=== PATIENT | female | born 1955 | race Caucasian/White ===

== ENCOUNTER → 2019-07-26 14:54 | Outpatient (BNVA) | payer MEDICAID, SELFPAY | PROVIDERS: Family Provider Family Medicine; PCP Family Medicine; Visit Provider Internal Medicine | DX: M06.9 Rheumatoid arthritis, unspecified (principal); Z79.899 Other long term (current) drug therapy | CPT/HCPCS: 99202; 99203 ==

== ENCOUNTER → 2019-12-27 13:40 | Outpatient (BNVA) | payer BC, MEDICAID, SELFPAY | PROVIDERS: Family Provider Family Medicine; PCP Family Medicine; Visit Provider Internal Medicine | DX: M06.9 Rheumatoid arthritis, unspecified (principal); Z11.1 Encounter for screening for respiratory tuberculosis; Z11.59 Encounter for screening for other viral diseases; D86.9 Sarcoidosis, unspecified; M32.9 Systemic lupus erythematosus, unspecified; Z79.899 Other long term (current) drug therapy | CPT/HCPCS: 36415; 80053; 85025; 86480; 86704; 86803; 87340; 99214 ==

== ENCOUNTER 2020-01-17 14:35 | Outpatient (CLI) | payer MEDICARE, MEDICAID, BC, SELFPAY ==
[2020-01-17 14:45] VITALS: BP 143/80; PULSE 79; RESP 16; TEMP 36.6; O2SAT 94
[2020-01-17] MEDS: diphenhydrAMINE 25 mg Capsule PO (15:00)
[2020-01-17] MEDS: acetaminophen 500 mg Tablet PO (15:00)
[2020-01-17 15:26] VITALS: BMI 19.7
--- NOTE | 2020-01-17 15:34 | PC.NURSE ---
1500 Education given regarding Actemra. Initial infusion today.
[2020-01-17 17:04] VITALS: BP 147/74; PULSE 76; RESP 16; O2SAT 96
== END 2020-01-17 14:36 | disposition home or self-care (01) ==
LOC: RHEOACUTE 14:35
PROVIDERS: Family Provider Family Medicine; PCP Family Medicine; Visit Provider Internal Medicine
DX: M06.09 Rheumatoid arthritis without rheumatoid factor, multiple sites (principal)
CPT/HCPCS: 96365; 96366; J2930; J3262

== ENCOUNTER 2020-02-15 14:37 | Outpatient (CLI) | payer MEDICARE, BC, MEDICAID, SELFPAY ==
[2020-02-15 14:45] VITALS: BP 141/81; PULSE 88; RESP 16; TEMP 36.6; O2SAT 94
[2020-02-15] MEDS: acetaminophen 500 mg Tablet PO (15:05)
[2020-02-15] MEDS: diphenhydrAMINE 25 mg Capsule PO (15:08)
[2020-02-15 16:19] VITALS: BMI 19.5
[2020-02-15 16:43] VITALS: BP 134/80; PULSE 79; RESP 16; O2SAT 93
== END 2020-02-15 14:38 | disposition home or self-care (01) ==
LOC: RHEOACUTE 14:38
PROVIDERS: Family Provider Family Medicine; PCP Family Medicine; Visit Provider Internal Medicine
DX: M06.09 Rheumatoid arthritis without rheumatoid factor, multiple sites (principal)
CPT/HCPCS: 96365; 96375; J2930; J3262

== ENCOUNTER 2020-03-20 13:43 | Outpatient (CLI) | payer MEDICARE, MEDICAID, SELFPAY ==
[2020-03-20 15:17] VITALS: BP 124/75; PULSE 75; RESP 16; TEMP 36.8; O2SAT 97
[2020-03-20] MEDS: diphenhydrAMINE 25 mg Capsule PO (15:23)
[2020-03-20] MEDS: acetaminophen 325 mg Tablet 650 MG PO (15:23)
[2020-03-20 15:30] VITALS: BP 125/76; PULSE 75; RESP 16; TEMP 36.6; O2SAT 94
[2020-03-20 16:14] LABS: Basophils # 0.1 10^3/uL (0.0-0.1); Basophils % 0.9 %; Eosinophils # 0.6 10^3/uL (0.0-0.8); Hemoglobin 10.9 g/dL (11.5-15.3); Lymphocytes # 2.4 10^3/uL (0.8-4.8); Lymphocytes % 23.7 %; Mean Corpuscular Hemoglobin 30.3 pg (28.0-34.0); Mean Corpuscular Volume 91.7 fL (81-99); Mean Platelet Volume 10.4 fL (7.4-10.4); Monocytes # 0.9 10^3/uL (0.2-0.9); Monocytes % 9.2 %; Neutrophils # 5.98 10^3/uL (1.8-7.7); Neutrophils % 59.9 %; Nucleated Red Blood Cells % 0 %; Platelet Count 473 10^3/cmm (130-400); Red Cell Distribution Width 13.5 % (12.1-15.1)
[2020-03-20 16:29] LABS: Alanine Aminotransferase 16 U/L (0-33); Albumin Level 3.7 g/dL (3.5-5.2); Alkaline Phosphatase 88 IU/L (35-105); Aspartate Amino Transferase 16 U/L (0-32); Blood Urea Nitrogen 14 mg/dL (8-23); C Reactive Protein 2.8 mg/L (0.0-4.9); Calcium 7.5 mg/dL (8.5-10.5); Carbon Dioxide 28 mmol/L (22-29); Chloride 102 mmol/L (98-107); Globulin 2.5 g/dL (1.3-4.6); Glomerular Filtration Rate 100.3 mL/min (90-130); Glucose 83 mg/dL (65-115); Osmolality Calculated 290 mOsm/kg (285-295); Sodium 140 mmol/L (136-145); Total Bilirubin 0.2 mg/dL (0.15-1.2); Total Protein 6.2 g/dL (6.6-8.7)
[2020-03-20 17:00] LABS: Erythrocyte Sedimentation Rate 18 mm/hr (0-15)
--- NOTE | 2020-04-10 08:40 | PC.NURSE ---
Due to an administrative issue we are doing a late entry for clarity of the medical record. The infusion case was routine and the approximate stop time was 1630 based upon the start time of 1530.
== END 2020-03-20 13:44 | disposition home or self-care (01) ==
LOC: RHEOACUTE 13:53 → ONCMED 13:57
PROVIDERS: PCP Family Medicine; Visit Provider Internal Medicine
DX: Z51.12 Encounter for antineoplastic immunotherapy (principal); M06.09 Rheumatoid arthritis without rheumatoid factor, multiple sites; M50.30 Other cervical disc degeneration, unspecified cervical region; Z79.899 Other long term (current) drug therapy
CPT/HCPCS: 80053; 85025; 85651; 86140; 96365; 96375; 99213; J2930; J3262

== ENCOUNTER 2020-04-17 14:38 | Outpatient (CLI) | payer MEDICARE, MEDICAID, SELFPAY ==
[2020-04-17 15:10] VITALS: BP 118/73; PULSE 79; RESP 16; TEMP 36.2; O2SAT 94
[2020-04-17] MEDS: acetaminophen 500 mg Tablet PO (15:15)
[2020-04-17] MEDS: diphenhydrAMINE 25 mg Capsule PO (15:15)
[2020-04-17 16:26] VITALS: BP 149/77; PULSE 149; RESP 79; TEMP 37.1; O2SAT 96
== END 2020-04-17 14:39 | disposition home or self-care (01) ==
PROVIDERS: PCP Family Medicine; Visit Provider Internal Medicine
DX: M06.9 Rheumatoid arthritis, unspecified (principal)
CPT/HCPCS: 96365; 96375; J2930; J3262

== ENCOUNTER 2020-05-15 14:40 | Outpatient (CLI) | payer MEDICARE, MEDICAID, SELFPAY ==
[2020-05-15 15:30] VITALS: BP 135/83; PULSE 81; RESP 16; TEMP 37.4; O2SAT 98
[2020-05-15] MEDS: sodium chloride 0.9% 250 ML IV (15:30)
[2020-05-15] MEDS: acetaminophen 500 mg Tablet PO (15:34)
[2020-05-15] MEDS: diphenhydrAMINE 25 mg Capsule PO (15:36)
[2020-05-15 16:36] VITALS: BP 150/88; PULSE 74; RESP 16; TEMP 37.4; O2SAT 99
== END 2020-05-15 14:41 | disposition home or self-care (01) ==
PROVIDERS: PCP Family Medicine; Visit Provider Internal Medicine
DX: M06.9 Rheumatoid arthritis, unspecified (principal)
CPT/HCPCS: 96365; 96375; J2930; J3262; J7050

== ENCOUNTER 2020-06-18 11:14 | Outpatient (CLI) | payer MEDICARE, MEDICAID, SELFPAY ==
[2020-06-18 14:20] VITALS: BP 143/81; PULSE 84; RESP 16; TEMP 36.9; O2SAT 100
[2020-06-18] MEDS: acetaminophen 500 mg Tablet PO (15:01)
[2020-06-18] MEDS: sodium chloride 0.9% 250 ML 75 ML IV (15:01)
[2020-06-18] MEDS: diphenhydrAMINE 25 mg Capsule PO (15:01)
[2020-06-18 15:41] LABS: Basophils # 0.1 10^3/uL (0.0-0.1); Basophils % 0.9 %; Eosinophils # 0.6 10^3/uL (0.0-0.8); Eosinophils % 4.7 %; Hematocrit 38.2 % (37.0-47.0); Hemoglobin 12.8 g/dL (11.5-15.3); Lymphocytes # 2.5 10^3/uL (0.8-4.8); Lymphocytes % 20.2 %; Mean Corpuscular HGB Conc 33.5 g/dL (30.0-36.0); Mean Corpuscular Hemoglobin 30.7 pg (28.0-34.0); Mean Corpuscular Volume 91.6 fL (81-99); Mean Platelet Volume 10.4 fL (7.4-10.4); Monocytes % 7.7 %; Neutrophils % 66.2 %; Nucleated Red Blood Cells % 0 %; Platelet Count 582 10^3/cmm (130-400); Red Blood Count 4.17 10^6/uL (4.1-5.3); Red Cell Distribution Width 12.4 % (12.1-15.1); White Blood Count 12.6 10^3/uL (4.0-10.0)
[2020-06-18 15:56] LABS: Alanine Aminotransferase 16 U/L (0-33); Alkaline Phosphatase 93 IU/L (35-105); Anion Gap 14.7 (5-19); Aspartate Amino Transferase 18 U/L (0-32); Blood Urea Nitrogen 18 mg/dL (8-23); C Reactive Protein 4.1 mg/L (0.0-4.9); Calcium 8.6 mg/dL (8.5-10.5); Carbon Dioxide 27 mmol/L (22-29); Chloride 99 mmol/L (98-107); Globulin 2.8 g/dL (1.3-4.6); Glomerular Filtration Rate 100.3 mL/min (90-130); Glucose 89 mg/dL (65-115); Osmolality Calculated 285 mOsm/kg (285-295); Potassium 3.7 mmol/L (3.5-5.1); Sodium 137 mmol/L (136-145); Total Bilirubin 0.2 mg/dL (0.15-1.2); Total Protein 6.8 g/dL (6.6-8.7)
[2020-06-18 16:16] VITALS: BP 138/84; PULSE 82; RESP 16; TEMP 36.8; O2SAT 99
[2020-06-19 14:23] LABS: Cyclic Citrullinated Peptide >250 UNITS
== END 2020-06-18 11:15 | disposition home or self-care (01) ==
PROVIDERS: PCP Registered Nurse; Visit Provider Internal Medicine
DX: M06.9 Rheumatoid arthritis, unspecified (principal)
CPT/HCPCS: 80053; 85025; 86140; 96365; 96375; J2930; J3262; J7050

== ENCOUNTER → 2020-06-27 13:20 | Outpatient (BNVA) | payer MEDICARE, MEDICAID, SELFPAY | PROVIDERS: PCP Family Medicine; Visit Provider Internal Medicine | DX: M06.09 Rheumatoid arthritis without rheumatoid factor, multiple sites (principal); Z79.899 Other long term (current) drug therapy | CPT/HCPCS: 99213; 99214 ==

== ENCOUNTER 2020-07-18 13:42 | Outpatient (CLI) | payer MEDICARE, MEDICAID, SELFPAY ==
[2020-07-18 14:26] VITALS: BP 151/82; PULSE 73; RESP 16; TEMP 37.2; O2SAT 99
[2020-07-18] MEDS: acetaminophen 500 mg Tablet PO (14:46)
[2020-07-18] MEDS: diphenhydrAMINE 25 mg Capsule PO (14:46)
[2020-07-18] MEDS: sodium chloride 0.9% 250 ML 75 ML IV (14:46)
[2020-07-18 16:05] VITALS: BP 145/89; PULSE 73; RESP 16; TEMP 36.5; O2SAT 100
== END 2020-07-18 13:43 | disposition home or self-care (01) ==
PROVIDERS: PCP Family Medicine; Referring Provider Internal Medicine; Visit Provider Internal Medicine
DX: M06.9 Rheumatoid arthritis, unspecified (principal)
CPT/HCPCS: 96365; 96375; J2930; J3262; J7050

== ENCOUNTER 2020-08-15 13:35 | Outpatient (CLI) | payer MEDICARE, MEDICAID, SELFPAY ==
[2020-08-15 14:08] VITALS: BP 138/78; PULSE 72; RESP 16; TEMP 36.6; O2SAT 99
[2020-08-15] MEDS: acetaminophen 500 mg Tablet PO (14:32)
[2020-08-15] MEDS: diphenhydrAMINE 25 mg Capsule PO (14:32)
[2020-08-15] MEDS: sodium chloride 0.9% 250 ML 75 ML IV (14:32)
[2020-08-15 15:54] VITALS: BP 142/83; PULSE 71; RESP 16; TEMP 36.4
== END 2020-08-15 13:36 | disposition home or self-care (01) ==
PROVIDERS: PCP Family Medicine; Referring Provider Internal Medicine; Visit Provider Internal Medicine
DX: M06.9 Rheumatoid arthritis, unspecified (principal)
CPT/HCPCS: 96365; 96375; J2930; J3262; J7050

== ENCOUNTER 2020-09-12 14:37 | Outpatient (CLI) | payer MEDICARE, MEDICAID, SELFPAY ==
[2020-09-12 15:06] VITALS: BP 147/88; PULSE 85; RESP 16; TEMP 36.7; O2SAT 99
[2020-09-12] MEDS: diphenhydrAMINE 25 mg Capsule PO (15:30)
[2020-09-12] MEDS: acetaminophen 500 mg Tablet PO (15:30)
[2020-09-12] MEDS: sodium chloride 0.9% 250 ML 75 ML IV (15:33)
[2020-09-12 16:00] LABS: Basophils # 0.1 10^3/uL (0.0-0.1); Basophils % 0.8 %; Eosinophils # 0.7 10^3/uL (0.0-0.8); Eosinophils % 7.5 %; Hematocrit 36.6 % (37.0-47.0); Hemoglobin 12.1 g/dL (11.5-15.3); Lymphocytes # 2.1 10^3/uL (0.8-4.8); Lymphocytes % 21.6 %; Mean Corpuscular HGB Conc 33.1 g/dL (30.0-36.0); Mean Corpuscular Hemoglobin 29.9 pg (28.0-34.0); Mean Corpuscular Volume 90.4 fL (81-99); Mean Platelet Volume 11.1 fL (7.4-10.4); Monocytes # 0.9 10^3/uL (0.2-0.9); Monocytes % 9.2 %; Neutrophils # 5.87 10^3/uL (1.8-7.7); Neutrophils % 60.7 %; Nucleated Red Blood Cells % 0 %; Platelet Count 410 10^3/cmm (130-400); Red Blood Count 4.05 10^6/uL (4.1-5.3); Red Cell Distribution Width 13.1 % (12.1-15.1); White Blood Count 9.7 10^3/uL (4.0-10.0)
[2020-09-12 16:28] LABS: Alanine Aminotransferase 14 U/L (0-33); Alkaline Phosphatase 117 IU/L (35-105); Anion Gap 15.5 (5-19); Aspartate Amino Transferase 16 U/L (0-32); Blood Urea Nitrogen 12 mg/dL (8-23); C Reactive Protein 10.9 mg/L (0.0-4.9); Calcium 8.7 mg/dL (8.5-10.5); Carbon Dioxide 25 mmol/L (22-29); Chloride 100 mmol/L (98-107); Creatinine Clr Calc Pharmacy 54.6204; Globulin 2.8 g/dL (1.3-4.6); Glomerular Filtration Rate 123.4 mL/min (90-130); Glucose 92 mg/dL (65-115); Osmolality Calculated 283 mOsm/kg (285-295); Potassium 3.5 mmol/L (3.5-5.1); Sodium 137 mmol/L (136-145); Total Bilirubin 0.2 mg/dL (0.15-1.2); Total Protein 6.8 g/dL (6.6-8.7)
[2020-09-12 16:33] VITALS: BP 146/87; PULSE 75; RESP 16; TEMP 36.6; O2SAT 99
[2020-09-14 14:17] LABS: Cyclic Citrullinated Peptide >250 UNITS
== END 2020-09-12 14:38 | disposition home or self-care (01) ==
PROVIDERS: PCP Family Medicine; Visit Provider Internal Medicine
DX: M06.9 Rheumatoid arthritis, unspecified (principal)
CPT/HCPCS: 80053; 85025; 86140; 96365; 96375; J2930; J3262; J7050

== ENCOUNTER 2020-10-10 14:26 | Outpatient (CLI) | payer MEDICARE, MEDICAID, SELFPAY ==
[2020-10-10 14:39] VITALS: BP 136/80; PULSE 81; RESP 18; TEMP 36.8; O2SAT 95
[2020-10-10] MEDS: acetaminophen 325 mg Tablet PO (15:11)
[2020-10-10] MEDS: diphenhydrAMINE 25 mg Capsule PO (15:11)
[2020-10-10] MEDS: sodium chloride 0.9% 250 ML 75 ML IV (15:13)
[2020-10-10 15:29] LABS: Basophils # 0.1 10^3/uL (0.0-0.1); Basophils % 0.8 %; Eosinophils # 0.6 10^3/uL (0.0-0.8); Eosinophils % 6.2 %; Hematocrit 38.7 % (37.0-47.0); Lymphocytes # 2.1 10^3/uL (0.8-4.8); Lymphocytes % 21.4 %; Mean Corpuscular HGB Conc 33.6 g/dL (30.0-36.0); Mean Corpuscular Hemoglobin 30.7 pg (28.0-34.0); Mean Corpuscular Volume 91.5 fl (81-99); Mean Platelet Volume 10.3 fL (7.4-10.4); Monocytes # 0.8 10^3/uL (0.2-0.9); Monocytes % 7.6 %; Neutrophils # 6.24 10^3/uL (1.8-7.7); Neutrophils % 63.7 %; Nucleated Red Blood Cells % 0 %; Platelet Count 396 10^3/cmm (130-400); Red Blood Count 4.23 10^6/uL (4.1-5.3); Red Cell Distribution Width 13.2 % (12.1-15.1); White Blood Count 9.8 10^3/uL (4.0-10.0)
[2020-10-10 16:05] LABS: Alanine Aminotransferase 18 U/L (0-33); Albumin Level 4.1 g/dL (3.5-5.2); Alkaline Phosphatase 90 IU/L (35-105); Anion Gap 14.5 (5-19); Aspartate Amino Transferase 19 U/L (0-32); Blood Urea Nitrogen 8 mg/dL (8-23); C Reactive Protein 4.1 mg/L (0.0-4.9); Calcium 8.3 mg/dL (8.5-10.5); Carbon Dioxide 26 mmol/L (22-29); Chloride 101 mmol/L (98-107); Globulin 2.8 g/dL (1.3-4.6); Glucose 134 mg/dL (65-115); Osmolality Calculated 286 mOsm/kg (285-295); Potassium 3.5 mmol/L (3.5-5.1); Sodium 138 mmol/L (136-145); Total Bilirubin 0.3 mg/dL (0.15-1.2); Total Protein 6.9 g/dL (6.6-8.7)
[2020-10-10 16:24] LABS: Erythrocyte Sedimentation Rate 26 mm/hr (0-15)
== END 2020-10-10 14:27 | disposition home or self-care (01) ==
PROVIDERS: PCP Family Medicine; Visit Provider Internal Medicine
DX: M06.9 Rheumatoid arthritis, unspecified (principal)
CPT/HCPCS: 80053; 85025; 85651; 86140; 96365; 96375; J2930; J3262; J7050

== ENCOUNTER → 2020-10-16 14:19 | Outpatient (BNVA) | payer MEDICARE, MEDICAID, SELFPAY | PROVIDERS: PCP Family Medicine; Visit Provider Internal Medicine | DX: M05.9 Rheumatoid arthritis with rheumatoid factor, unspecified (principal); Z79.899 Other long term (current) drug therapy | CPT/HCPCS: 99214 ==

== ENCOUNTER 2020-11-07 14:36 | Outpatient (CLI) | payer MEDICARE, MEDICAID, SELFPAY ==
[2020-11-07 14:51] VITALS: BP 151/83; PULSE 82; RESP 16; TEMP 36.7; O2SAT 98
[2020-11-07] MEDS: diphenhydrAMINE 25 mg Capsule PO (15:14)
[2020-11-07] MEDS: sodium chloride 0.9% 250 ML 75 ML IV (15:14)
[2020-11-07] MEDS: acetaminophen 325 mg Tablet PO (15:14)
[2020-11-07 16:21] VITALS: BP 133/78; PULSE 80; RESP 18; TEMP 36.5; O2SAT 98
== END 2020-11-07 14:37 | disposition home or self-care (01) ==
LOC: ONCMED 14:41
PROVIDERS: PCP Family Medicine; Visit Provider Internal Medicine
DX: M06.9 Rheumatoid arthritis, unspecified (principal)
CPT/HCPCS: 96365; 96375; J2930; J3262; J7050

== ENCOUNTER 2020-12-05 14:15 | Outpatient (CLI) | payer MEDICARE, MEDICAID, SELFPAY ==
[2020-12-05 15:10] VITALS: BP 145/76; PULSE 86; RESP 18; TEMP 36.9; O2SAT 97
[2020-12-05] MEDS: acetaminophen 325 mg Tablet PO (15:38)
[2020-12-05] MEDS: diphenhydrAMINE 25 mg Capsule PO (15:38)
[2020-12-05] MEDS: sodium chloride 0.9% 250 ML 75 ML IV (15:40)
[2020-12-05 16:45] VITALS: BP 144/82; PULSE 76; RESP 18; TEMP 36.8; O2SAT 96
== END 2020-12-05 14:16 | disposition home or self-care (01) ==
PROVIDERS: PCP Registered Nurse; Visit Provider Internal Medicine
DX: M06.9 Rheumatoid arthritis, unspecified (principal)
CPT/HCPCS: 96365; 96375; J2930; J3262; J7050

== ENCOUNTER → 2020-12-25 15:24 | Outpatient (BNVA) | payer MEDICARE, MEDICAID, SELFPAY | PROVIDERS: PCP Registered Nurse; Visit Provider Internal Medicine | DX: M05.9 Rheumatoid arthritis with rheumatoid factor, unspecified (principal); Z79.899 Other long term (current) drug therapy; M50.30 Other cervical disc degeneration, unspecified cervical region | CPT/HCPCS: 99214 ==

== ENCOUNTER 2021-01-01 13:31 | Outpatient (CLI) | payer MEDICARE, MEDICAID, SELFPAY ==
[2021-01-01 14:05] VITALS: BP 141/84; PULSE 83; RESP 18; TEMP 37; O2SAT 100
[2021-01-01] MEDS: acetaminophen 325 mg Tablet PO (14:24)
[2021-01-01] MEDS: diphenhydrAMINE 25 mg Capsule PO (14:24)
[2021-01-01] MEDS: sodium chloride 0.9% 250 ML 75 ML IV (14:25)
[2021-01-01 15:48] VITALS: BP 156/88; PULSE 83; RESP 18; O2SAT 96
== END 2021-01-01 13:32 | disposition home or self-care (01) ==
PROVIDERS: PCP Registered Nurse; Referring Provider Internal Medicine; Visit Provider Internal Medicine
DX: M06.9 Rheumatoid arthritis, unspecified (principal)
CPT/HCPCS: 96365; 96375; J2930; J3262; J7050

== ENCOUNTER 2021-01-29 12:46 | Outpatient (CLI) | payer MEDICARE, MEDICAID, SELFPAY ==
[2021-01-29 13:32] VITALS: BP 144/83; PULSE 81; RESP 18; TEMP 36.6; O2SAT 99
[2021-01-29] MEDS: acetaminophen 325 mg Tablet PO (13:54)
[2021-01-29] MEDS: diphenhydrAMINE 25 mg Capsule PO (13:54)
[2021-01-29] MEDS: sodium chloride 0.9% 250 ML 50 ML IV (13:56)
[2021-01-29 14:01] LABS: Basophils # 0.1 10^3/uL (0.0-0.1); Basophils % 0.5 %; Eosinophils # 0.4 10^3/uL (0.0-0.8); Eosinophils % 3.6 %; Hematocrit 35.9 % (37.0-47.0); Lymphocytes # 2.1 10^3/uL (0.8-4.8); Lymphocytes % 18.7 %; Mean Corpuscular HGB Conc 33.4 g/dL (30.0-36.0); Mean Corpuscular Hemoglobin 29.7 pg (28.0-34.0); Mean Corpuscular Volume 88.9 fl (81-99); Monocytes % 9.3 %; Neutrophils # 7.51 10^3/uL (1.8-7.7); Neutrophils % 67.5 %; Nucleated Red Blood Cells % 0 %; Platelet Count 464 10^3/cmm (130-400); Red Blood Count 4.04 10^6/uL (4.1-5.3); Red Cell Distribution Width 12.8 % (12.1-15.1); White Blood Count 11.2 10^3/uL (4.0-10.0)
[2021-01-29 14:14] LABS: Alanine Aminotransferase 18 U/L (0-33); Albumin Level 4.2 g/dL (3.5-5.2); Alkaline Phosphatase 114 IU/L (35-105); Anion Gap 18.4 (5-19); Aspartate Amino Transferase 14 U/L (0-32); Blood Urea Nitrogen 14 mg/dL (8-23); Calcium 8.1 mg/dL (8.5-10.5); Carbon Dioxide 23 mmol/L (22-29); Chloride 103 mmol/L (98-107); Creatinine Clr Calc Pharmacy 56.2055; Globulin 3.1 g/dL (1.3-4.6); Glomerular Filtration Rate 123.4 mL/min (90-130); Glucose 88 mg/dL (65-115); Osmolality Calculated 292 mOsm/kg (285-295); Potassium 3.4 mmol/L (3.5-5.1); Sodium 141 mmol/L (136-145); Total Bilirubin 0.2 mg/dL (0.15-1.2); Total Protein 7.3 g/dL (6.6-8.7)
[2021-01-29 15:19] VITALS: BP 145/83; PULSE 78; RESP 18; TEMP 36.7; O2SAT 97
[2021-01-30 15:12] LABS: Cyclic Citrullinated Peptide >250 UNITS
== END 2021-01-29 12:47 | disposition home or self-care (01) ==
PROVIDERS: PCP Registered Nurse; Referring Provider Internal Medicine; Visit Provider Internal Medicine
DX: M06.9 Rheumatoid arthritis, unspecified (principal); Z79.899 Other long term (current) drug therapy
CPT/HCPCS: 80053; 85025; 86140; 86200; 96365; 96375; J2930; J3262; J7050

== ENCOUNTER 2021-02-28 14:23 | Outpatient (CLI) | payer MEDICARE, MEDICAID, SELFPAY ==
[2021-02-28 14:45] VITALS: BP 152/88; PULSE 84; RESP 18; TEMP 36.6; O2SAT 100
[2021-02-28] MEDS: diphenhydrAMINE 25 mg Capsule PO (15:00)
[2021-02-28] MEDS: acetaminophen 325 mg Tablet 650 MG PO (15:00)
[2021-02-28] MEDS: sodium chloride 0.9% 250 ML 75 ML IV (15:05)
[2021-02-28 16:15] VITALS: BP 141/86; PULSE 76; RESP 18; TEMP 36.4; O2SAT 99
== END 2021-02-28 14:24 | disposition home or self-care (01) ==
PROVIDERS: PCP Registered Nurse; Referring Provider Internal Medicine; Visit Provider Internal Medicine
DX: M06.9 Rheumatoid arthritis, unspecified (principal)
CPT/HCPCS: 96365; 96375; J2930; J3262; J7050

== ENCOUNTER 2021-03-28 07:59 | Outpatient (CLI) | payer MEDICARE, MEDICAID, SELFPAY ==
[2021-03-28 08:19] VITALS: BP 157/89; PULSE 81; RESP 18; TEMP 36.8; O2SAT 97
[2021-03-28] MEDS: diphenhydrAMINE 25 mg Capsule PO (08:50)
[2021-03-28] MEDS: acetaminophen 325 mg Tablet PO (08:50)
[2021-03-28] MEDS: sodium chloride 0.9% 250 ML 50 ML IV (08:51)
[2021-03-28 09:51] VITALS: BP 147/82; PULSE 75; RESP 18; TEMP 36.4; O2SAT 96
--- NOTE | 2021-03-28 11:04 | PC.NURSE ---
Due to an administrative issue we are doing a late entry for clarity of the medical record on 02-28-21. The infusion case was routine and the approximate stop time was 1600 based upon the start time of 1500.
== END 2021-03-28 08:00 | disposition home or self-care (01) ==
PROVIDERS: PCP Registered Nurse; Visit Provider Internal Medicine Medical Oncology
DX: Z51.12 Encounter for antineoplastic immunotherapy (principal); M06.9 Rheumatoid arthritis, unspecified
CPT/HCPCS: 96365; 96375; J2930; J3262; J7050

== ENCOUNTER → 2021-04-15 15:18 | Outpatient (BNVA) | payer MEDICARE, MEDICAID, SELFPAY | PROVIDERS: PCP Registered Nurse; Visit Provider Internal Medicine | DX: M05.9 Rheumatoid arthritis with rheumatoid factor, unspecified (principal); Z79.899 Other long term (current) drug therapy; Z87.891 Personal history of nicotine dependence | CPT/HCPCS: 99214 ==

== ENCOUNTER 2021-04-25 14:20 | Outpatient (CLI) | payer MEDICARE, MEDICAID, SELFPAY ==
[2021-04-25] MEDS: acetaminophen 325 mg Tablet 650 MG PO (15:07)
[2021-04-25] MEDS: diphenhydrAMINE 25 mg Capsule PO (15:07)
[2021-04-25 15:08] LABS: Basophils # 0.1 10^3/uL (0.0-0.1); Basophils % 0.8 %; Eosinophils # 0.6 10^3/uL (0.0-0.8); Eosinophils % 6.6 %; Hematocrit 36.7 % (37.0-47.0); Hemoglobin 12.3 g/dL (11.5-15.3); Lymphocytes # 2.2 10^3/uL (0.8-4.8); Lymphocytes % 24.9 %; Mean Corpuscular HGB Conc 33.5 g/dL (30.0-36.0); Mean Corpuscular Hemoglobin 30.3 pg (28.0-34.0); Mean Corpuscular Volume 90.4 fl (81-99); Monocytes # 0.8 10^3/uL (0.2-0.9); Neutrophils # 5.04 10^3/uL (1.8-7.7); Neutrophils % 58.5 %; Nucleated Red Blood Cells % 0 %; Platelet Count 401 10^3/cmm (130-400); Red Blood Count 4.06 10^6/uL (4.1-5.3); White Blood Count 8.6 10^3/uL (4.0-10.0)
[2021-04-25] MEDS: sodium chloride 0.9% 250 ML 50 ML IV (15:09)
[2021-04-25 15:21] VITALS: BP 161/84; PULSE 73; RESP 18; TEMP 36.9; O2SAT 98
[2021-04-25 15:33] LABS: Alanine Aminotransferase 16 U/L (0-33); Albumin Level 4.5 g/dL (3.5-5.2); Alkaline Phosphatase 96 IU/L (35-105); Anion Gap 16.5 (5-19); Aspartate Amino Transferase 16 U/L (0-32); Blood Urea Nitrogen 12 mg/dL (8-23); C Reactive Protein 3.8 mg/L (0.0-4.9); Calcium 9.1 mg/dL (8.5-10.5); Carbon Dioxide 24 mmol/L (22-29); Chloride 101 mmol/L (98-107); Creatinine Clr Calc Pharmacy 56.2055; Globulin 2.6 g/dL (1.3-4.6); Glucose 94 mg/dL (65-115); Osmolality Calculated 286 mOsm/kg (285-295); Potassium 3.5 mmol/L (3.5-5.1); Sodium 138 mmol/L (136-145); Total Bilirubin 0.2 mg/dL (0.15-1.2); Total Protein 7.1 g/dL (6.6-8.7)
[2021-04-25 16:25] VITALS: BP 157/85; PULSE 76; RESP 18; TEMP 36.7; O2SAT 97
[2021-04-26 14:12] LABS: Cyclic Citrullinated Peptide >250 UNITS
== END 2021-04-25 14:21 | disposition home or self-care (01) ==
PROVIDERS: PCP Registered Nurse; Visit Provider Internal Medicine
DX: M06.9 Rheumatoid arthritis, unspecified (principal); Z79.899 Other long term (current) drug therapy
CPT/HCPCS: 80053; 85025; 86140; 86200; 96365; 96375; J2930; J3262; J7050

== ENCOUNTER 2021-05-23 14:05 | Outpatient (CLI) | payer MEDICARE, MEDICAID, SELFPAY ==
[2021-05-23 14:16] VITALS: BP 139/87; PULSE 77; RESP 18; TEMP 36.9; O2SAT 98
[2021-05-23] MEDS: acetaminophen 325 mg Tablet PO (14:40)
[2021-05-23] MEDS: diphenhydrAMINE 25 mg Capsule PO (14:40)
[2021-05-23] MEDS: sodium chloride 0.9% 250 ML 50 ML IV (14:42)
[2021-05-23 16:04] VITALS: BP 144/86; PULSE 81; RESP 18; TEMP 36.9; O2SAT 97
== END 2021-05-23 14:06 | disposition home or self-care (01) ==
PROVIDERS: PCP Registered Nurse; Referring Provider Internal Medicine; Visit Provider Internal Medicine
DX: M06.9 Rheumatoid arthritis, unspecified (principal)
CPT/HCPCS: 96365; 96375; J2930; J3262; J7050

== ENCOUNTER 2021-06-20 13:07 | Outpatient (CLI) | payer MEDICARE, MEDICAID, SELFPAY ==
[2021-06-20 13:17] VITALS: BP 154/90; PULSE 86; RESP 18; TEMP 37; O2SAT 96
[2021-06-20] MEDS: acetaminophen 325 mg Tablet PO (13:42)
[2021-06-20] MEDS: diphenhydrAMINE 25 mg Capsule PO (13:43)
[2021-06-20] MEDS: sodium chloride 0.9% 250 ML 50 ML IV (13:46)
[2021-06-20 14:54] VITALS: BP 155/82; PULSE 78; RESP 18; TEMP 37.2; O2SAT 96
== END 2021-06-20 13:08 | disposition home or self-care (01) ==
LOC: ONCMED 13:08
PROVIDERS: PCP Registered Nurse; Referring Provider Internal Medicine; Visit Provider Internal Medicine
DX: M06.9 Rheumatoid arthritis, unspecified (principal)
CPT/HCPCS: 96365; 96375; J2920; J3262; J7050

== ENCOUNTER 2021-07-18 13:26 | Outpatient (CLI) | payer MEDICARE, MEDICAID, SELFPAY ==
[2021-07-18 13:53] VITALS: BP 152/83; PULSE 84; RESP 18; TEMP 37.1; O2SAT 97
[2021-07-18 14:36] LABS: Add Urine Microscopic? NO; Charge for UA Resulting for Rev
[2021-07-18 14:40] LABS: Urine Appearance Clear (CLEAR); Urine Color Yellow (Yellow); pH Urine 7 (5-7)
[2021-07-18 14:41] LABS: Bilirubin Urine Neg (Negative); Blood Urine Neg (Negative); Glucose Urine UA Norm (Normal); Ketones Urine Negative (Negative); Leukocyte Esterase Urine Negative (Negative); Nitrate Urine Negative (Negative); Protein Urine Neg (Negative); Specific Gravity, Urine 1.005 (1.005-1.030); Urobilinogen Urine Norm (Negative)
[2021-07-18 14:58] LABS: Basophils # 0.1 10^3/uL (0.0-0.1); Basophils % 0.9 %; Eosinophils # 0.3 10^3/uL (0.0-0.8); Eosinophils % 5.1 %; Hemoglobin 12.4 g/dL (11.5-15.3); Lymphocytes # 1.7 10^3/uL (0.8-4.8); Mean Corpuscular HGB Conc 34.4 g/dL (30.0-36.0); Mean Corpuscular Hemoglobin 30.5 pg (28.0-34.0); Mean Corpuscular Volume 88.5 fl (81-99); Mean Platelet Volume 10.3 fL (7.4-10.4); Monocytes # 0.7 10^3/uL (0.2-0.9); Monocytes % 10.6 %; Neutrophils # 3.77 10^3/uL (1.8-7.7); Neutrophils % 57.1 %; Nucleated Red Blood Cells % 0 %; Platelet Count 430 10^3/cmm (130-400); Red Blood Count 4.07 10^6/uL (4.1-5.3); White Blood Count 6.6 10^3/uL (4.0-10.0)
[2021-07-18] MEDS: sodium chloride 0.9% 100 mL Bag IV (15:06)
[2021-07-18 15:18] VITALS: BP 163/79; PULSE 69; RESP 18; TEMP 36.8; O2SAT 96
--- NOTE | 2021-07-18 15:25 | PC.NURSE ---
Actemra infusion held due to rash on upper extremities, chest and and back. Spoke with Dr. Acosta, and pt is given 40mg of Solu-Medrol IVP with 100mL of NS. She is prescribed Prednisone 20mg/day and Pantoprazole, and is instructed to call us next week with an update. dh
[2021-07-18 15:33] LABS: Alanine Aminotransferase 18 U/L (0-33); Albumin Level 4.6 g/dL (3.5-5.2); Alkaline Phosphatase 107 IU/L (35-105); Anion Gap 15.4 (5-19); Aspartate Amino Transferase 19 U/L (0-32); Blood Urea Nitrogen 20 mg/dL (8-23); C Reactive Protein 6.8 mg/L (0.0-4.9); Calcium 9.2 mg/dL (8.5-10.5); Carbon Dioxide 26 mmol/L (22-29); Chloride 103 mmol/L (98-107); Creatinine Clr Calc Pharmacy 56.2055; Glucose 68 mg/dL (65-115); Osmolality Calculated 293 mOsm/kg (285-295); Potassium 3.4 mmol/L (3.5-5.1); Sodium 141 mmol/L (136-145); Total Bilirubin 0.2 mg/dL (0.15-1.2); Total Protein 7.6 g/dL (6.6-8.7)
[2021-07-18 15:35] LABS: Erythrocyte Sedimentation Rate 16 mm/hr (0-15)
[2021-07-19 14:13] LABS: Cyclic Citrullinated Peptide >250 UNITS
[2021-07-19 21:54] LABS: Urine Protein Random 4 mg/dL
[2021-07-19 22:03] LABS: Urine Creatinine 21 mg/dL (28-217)
== END 2021-07-18 13:27 | disposition home or self-care (01) ==
PROVIDERS: Internal Medicine Rheumatology; PCP Registered Nurse; Referring Provider Internal Medicine; Visit Provider Internal Medicine
DX: M06.9 Rheumatoid arthritis, unspecified (principal)
CPT/HCPCS: 80053; 81003; 82570; 84156; 85025; 85651; 86140; 86200; 96374; J2920

== ENCOUNTER → 2021-07-22 14:35 | Outpatient (BNVA) | payer MEDICARE, MEDICAID, SELFPAY | PROVIDERS: PCP Registered Nurse; Visit Provider Internal Medicine | DX: M05.9 Rheumatoid arthritis with rheumatoid factor, unspecified (principal); R21 Rash and other nonspecific skin eruption; Z79.899 Other long term (current) drug therapy | CPT/HCPCS: 99213; 99214 ==

== ENCOUNTER 2021-07-31 13:57 | Outpatient (CLI) | payer MEDICARE, MEDICAID, SELFPAY ==
[2021-07-31 14:07] VITALS: BP 129/83; PULSE 78; RESP 18; TEMP 37.4; O2SAT 97
[2021-07-31] MEDS: sodium chloride 0.9% 250 ML 50 ML IV (14:39)
[2021-07-31] MEDS: acetaminophen 325 mg Tablet PO (14:39)
[2021-07-31] MEDS: diphenhydrAMINE 25 mg Capsule PO (14:40)
[2021-07-31 15:49] VITALS: BP 147/91; PULSE 65; RESP 18; TEMP 37.1; O2SAT 99
== END 2021-07-31 13:58 | disposition home or self-care (01) ==
LOC: ONCMED 13:57
PROVIDERS: PCP Registered Nurse; Referring Provider Internal Medicine; Visit Provider Internal Medicine
DX: M06.9 Rheumatoid arthritis, unspecified (principal)
CPT/HCPCS: 96365; 96375; J2930; J3262; J7050

== ENCOUNTER 2021-08-28 13:43 | Outpatient (CLI) | payer MEDICARE, MEDICAID, SELFPAY ==
[2021-08-28 14:00] VITALS: BP 141/82; PULSE 76; RESP 18; TEMP 36.9; O2SAT 98
[2021-08-28] MEDS: sodium chloride 0.9% 250 ML 50 ML IV (14:34)
[2021-08-28] MEDS: acetaminophen 325 mg Tablet PO (14:35)
[2021-08-28] MEDS: diphenhydrAMINE 25 mg Capsule PO (14:35)
[2021-08-28 15:47] VITALS: BP 141/83; PULSE 72; RESP 18; TEMP 37.1; O2SAT 95
== END 2021-08-28 13:44 | disposition home or self-care (01) ==
PROVIDERS: PCP Registered Nurse; Referring Provider Internal Medicine; Visit Provider Internal Medicine
DX: M06.9 Rheumatoid arthritis, unspecified (principal)
CPT/HCPCS: 96365; 96375; J2920; J3262; J7050

== ENCOUNTER 2021-09-25 12:47 | Outpatient (CLI) | payer MEDICARE, MEDICAID, SELFPAY ==
[2021-09-25 13:33] VITALS: BP 138/84; PULSE 80; RESP 18; TEMP 36.8; O2SAT 98
[2021-09-25] MEDS: sodium chloride 0.9% 250 ML 50 ML IV (13:59)
[2021-09-25] MEDS: acetaminophen 325 mg Tablet PO (14:00)
[2021-09-25] MEDS: diphenhydrAMINE 25 mg Capsule PO (14:00)
[2021-09-25 15:13] VITALS: BP 148/87; PULSE 72; RESP 18; TEMP 36.6; O2SAT 98
== END 2021-09-25 12:48 | disposition home or self-care (01) ==
PROVIDERS: PCP Registered Nurse; Visit Provider Internal Medicine
DX: M06.9 Rheumatoid arthritis, unspecified (principal)
CPT/HCPCS: 96365; 96375; J2920; J3262; J7050

== ENCOUNTER 2021-10-28 12:45 | Outpatient (CLI) | payer MEDICARE, MEDICAID, SELFPAY ==
[2021-10-28 13:23] VITALS: BP 129/77; PULSE 69; RESP 18; TEMP 37; O2SAT 97
[2021-10-28 13:23] LABS: Basophils # 0.1 10^3/uL (0.0-0.1); Basophils % 0.7 %; Eosinophils # 0.3 10^3/uL (0.0-0.8); Eosinophils % 3.3 %; Hematocrit 39.3 % (37.0-47.0); Lymphocytes # 2.2 10^3/uL (0.8-4.8); Mean Corpuscular HGB Conc 33.1 g/dL (30.0-36.0); Mean Corpuscular Hemoglobin 30.2 pg (28.0-34.0); Mean Corpuscular Volume 91.4 fl (81-99); Monocytes # 0.7 10^3/uL (0.2-0.9); Monocytes % 6.8 %; Neutrophils # 6.37 10^3/uL (1.8-7.7); Neutrophils % 65.9 %; Nucleated Red Blood Cells % 0 %; Platelet Count 493 10^3/cmm (130-400); Red Cell Distribution Width 13.5 % (12.1-15.1); White Blood Count 9.7 10^3/uL (4.0-10.0)
[2021-10-28] MEDS: sodium chloride 0.9% 250 ML 50 ML IV (13:35)
[2021-10-28] MEDS: diphenhydrAMINE 25 mg Capsule PO (13:36)
[2021-10-28] MEDS: acetaminophen 325 mg Tablet 320 MG PO (13:44)
[2021-10-28 14:02] LABS: Alanine Aminotransferase 19 U/L (0-33); Albumin Level 4.3 g/dL (3.5-5.2); Alkaline Phosphatase 97 U/L (35-105); Anion Gap 14.3 (5-19); Aspartate Amino Transferase 19 U/L (0-32); Blood Urea Nitrogen 16 mg/dL (8-23); Carbon Dioxide 28 mmol/L (22-29); Chloride 102 mmol/L (98-107); Globulin 3.2 g/dL (1.3-4.6); Glomerular Filtration Rate 83.5 mL/min (90-130); Glucose 92 mg/dL (65-115); Osmolality Calculated 293 mOsm/kg (285-295); Potassium 3.3 mmol/L (3.5-5.1); Sodium 141 mmol/L (136-145); Total Bilirubin 0.5 mg/dL (0.15-1.2); Total Protein 7.5 g/dL (6.6-8.7)
[2021-10-28 15:03] VITALS: BP 129/75; PULSE 61; RESP 18; TEMP 36.8; O2SAT 97
== END 2021-10-28 12:46 | disposition home or self-care (01) ==
PROVIDERS: PCP Registered Nurse; Referring Provider Internal Medicine; Visit Provider Internal Medicine
DX: M06.9 Rheumatoid arthritis, unspecified (principal); Z79.899 Other long term (current) drug therapy
CPT/HCPCS: 80053; 85025; 86140; 96365; 96375; J2920; J3262; J7050

== ENCOUNTER → 2021-11-20 11:53 | Outpatient (BNVA) | payer MEDICARE, MEDICAID, SELFPAY | PROVIDERS: PCP Registered Nurse; Visit Provider Internal Medicine | DX: M05.9 Rheumatoid arthritis with rheumatoid factor, unspecified (principal); R21 Rash and other nonspecific skin eruption | CPT/HCPCS: 99214 ==

== ENCOUNTER 2021-11-25 13:33 | Outpatient (CLI) | payer MEDICARE, MEDICAID, SELFPAY ==
[2021-11-25 13:55] VITALS: BP 132/86; PULSE 71; RESP 18; TEMP 36.5; O2SAT 99
[2021-11-25] MEDS: sodium chloride 0.9% 250 ML 50 ML IV (14:14)
[2021-11-25] MEDS: acetaminophen 325 mg Tablet PO (14:15)
[2021-11-25] MEDS: diphenhydrAMINE 25 mg Capsule PO (14:16)
[2021-11-25 15:22] VITALS: BP 133/75; PULSE 66; RESP 18; TEMP 36.6; O2SAT 98
== END 2021-11-25 13:34 | disposition home or self-care (01) ==
LOC: ONCMED 13:35
PROVIDERS: PCP Registered Nurse; Visit Provider Internal Medicine
DX: M06.9 Rheumatoid arthritis, unspecified (principal)
CPT/HCPCS: 96365; 96375; J2920; J3262; J7050

== ENCOUNTER 2021-12-25 12:42 | Outpatient (CLI) | payer MEDICARE, MEDICAID, SELFPAY ==
[2021-12-25 13:12] VITALS: BP 134/76; PULSE 74; RESP 18; TEMP 36.7; O2SAT 97
[2021-12-25] MEDS: sodium chloride 0.9% 250 ML 50 ML IV (13:51)
[2021-12-25] MEDS: acetaminophen 325 mg Tablet 650 MG PO (13:52)
[2021-12-25] MEDS: diphenhydrAMINE 25 mg Capsule PO (13:52)
[2021-12-25 15:03] VITALS: BP 144/74; PULSE 77; RESP 18; TEMP 36.6; O2SAT 96
== END 2021-12-25 12:43 | disposition home or self-care (01) ==
LOC: ONCMED 12:42
PROVIDERS: PCP Registered Nurse; Visit Provider Internal Medicine
DX: M06.9 Rheumatoid arthritis, unspecified
CPT/HCPCS: 96365; 96375; J2920; J3262; J7050

== ENCOUNTER 2022-01-29 13:13 | Outpatient (CLI) | payer MEDICARE, MEDICAID, SELFPAY ==
[2022-01-29 13:57] VITALS: BP 142/78; PULSE 82; RESP 18; TEMP 36.7; O2SAT 99
[2022-01-29 14:18] LABS: Basophils # 0.1 10^3/uL (0.0-0.1); Basophils % 0.6 %; Eosinophils # 0.6 10^3/uL (0.0-0.8); Eosinophils % 6.3 %; Hematocrit 38.8 % (37.0-47.0); Hemoglobin 13.1 g/dL (11.5-15.3); Lymphocytes # 2.1 10^3/uL (0.8-4.8); Lymphocytes % 20.8 %; Mean Corpuscular HGB Conc 33.8 g/dL (30.0-36.0); Mean Corpuscular Hemoglobin 30.8 pg (28.0-34.0); Mean Corpuscular Volume 91.3 fl (81-99); Mean Platelet Volume 10.4 fL (7.4-10.4); Monocytes # 0.8 10^3/uL (0.2-0.9); Monocytes % 8.1 %; Neutrophils # 6.42 10^3/uL (1.8-7.7); Neutrophils % 63.9 %; Nucleated Red Blood Cells % 0 %; Platelet Count 388 10^3/cmm (130-400); Red Blood Count 4.25 10^6/uL (4.1-5.3); Red Cell Distribution Width 13.2 % (12.1-15.1)
[2022-01-29] MEDS: sodium chloride 0.9% 250 ML 50 ML IV (14:18)
[2022-01-29] MEDS: acetaminophen 325 mg Tablet 650 MG PO (14:19)
[2022-01-29] MEDS: diphenhydrAMINE 25 mg Capsule PO (14:20)
[2022-01-29 14:28] LABS: Alanine Aminotransferase 20 U/L (0-33); Albumin Level 4.4 g/dL (3.5-5.2); Alkaline Phosphatase 61 U/L (35-105); Anion Gap 13.2 (5-19); Aspartate Amino Transferase 20 U/L (0-32); Blood Urea Nitrogen 12 mg/dL (8-23); Calcium 9.2 mg/dL (8.5-10.5); Carbon Dioxide 28 mmol/L (22-29); Chloride 100 mmol/L (98-107); Globulin 2.5 g/dL (1.3-4.6); Glomerular Filtration Rate 83.5 mL/min (90-130); Glucose 121 mg/dL (65-115); Osmolality Calculated 287 mOsm/kg (285-295); Potassium 3.2 mmol/L (3.5-5.1); Sodium 138 mmol/L (136-145); Total Bilirubin 0.3 mg/dL (0.15-1.2); Total Protein 6.9 g/dL (6.6-8.7)
[2022-01-29 15:59] VITALS: BP 146/81; PULSE 77; RESP 18; TEMP 36.8; O2SAT 99
== END 2022-01-29 13:14 | disposition home or self-care (01) ==
LOC: ONCMED 13:13
PROVIDERS: PCP Registered Nurse; Visit Provider Internal Medicine
DX: M06.9 Rheumatoid arthritis, unspecified (principal)
CPT/HCPCS: 80053; 85025; 86140; 96365; 96375; J2920; J3262; J7050

== ENCOUNTER → 2022-02-11 15:11 | Outpatient (BNVA) | payer MEDICARE, MEDICAID, SELFPAY | PROVIDERS: PCP Registered Nurse; Visit Provider Internal Medicine | DX: M05.9 Rheumatoid arthritis with rheumatoid factor, unspecified (principal); R21 Rash and other nonspecific skin eruption; E87.6 Hypokalemia | CPT/HCPCS: 99214 ==

== ENCOUNTER 2022-02-25 12:40 | Outpatient (CLI) | payer MEDICARE, MEDICAID, SELFPAY ==
[2022-02-25 12:58] VITALS: BP 132/84; PULSE 86; RESP 18; TEMP 36.8; O2SAT 98
[2022-02-25] MEDS: acetaminophen 325 mg Tablet 650 MG PO (13:14)
[2022-02-25] MEDS: sodium chloride 0.9% 250 ML 50 ML IV (13:14)
[2022-02-25] MEDS: diphenhydrAMINE 50 mg/mL SDV 1mL 25 MG IVP (13:16)
[2022-02-25 14:39] VITALS: BP 126/76; PULSE 77; RESP 18; TEMP 37.1; O2SAT 99
== END 2022-02-25 12:41 | disposition home or self-care (01) ==
LOC: ONCMED 12:40
PROVIDERS: PCP Registered Nurse; Visit Provider Internal Medicine
DX: M06.9 Rheumatoid arthritis, unspecified (principal)
CPT/HCPCS: 96365; 96375; J1200; J2920; J3262; J7050

== ENCOUNTER → 2022-03-24 10:53 | Outpatient (BNVA) | payer MEDICARE, MEDICAID, SELFPAY | PROVIDERS: PCP Registered Nurse; Visit Provider Registered Nurse | DX: A28.1 Cat-scratch disease (principal); S60.511A Abrasion of right hand, initial encounter; L08.9 Local infection of the skin and subcutaneous tissue, unspecified; W55.03XA Scratched by cat, initial encounter; I10 Essential (primary) hypertension; M06.09 Rheumatoid arthritis without rheumatoid factor, multiple sites; M50.30 Other cervical disc degeneration, unspecified cervical region | CPT/HCPCS: 85025; 86611 ==

== ENCOUNTER → 2022-04-02 09:20 | Outpatient (BNVA) | payer MEDICARE, MEDICAID, SELFPAY | PROVIDERS: PCP Registered Nurse; Visit Provider Registered Nurse | DX: B99.9 Unspecified infectious disease (principal) | CPT/HCPCS: 85007; 85027 ==

== ENCOUNTER → 2022-04-07 08:36 | Outpatient (BNVA) | payer MEDICARE, MEDICAID, SELFPAY | PROVIDERS: PCP Registered Nurse; Visit Provider Registered Nurse | DX: S60.511A Abrasion of right hand, initial encounter (principal); L08.9 Local infection of the skin and subcutaneous tissue, unspecified; W55.03XA Scratched by cat, initial encounter | CPT/HCPCS: 85007; 85027 ==

== ENCOUNTER → 2022-04-16 15:13 | Outpatient (BNVA) | payer MEDICARE, MEDICAID, SELFPAY | PROVIDERS: PCP Registered Nurse; Visit Provider Registered Nurse | DX: I10 Essential (primary) hypertension (principal); L08.9 Local infection of the skin and subcutaneous tissue, unspecified; M06.9 Rheumatoid arthritis, unspecified; S60.511A Abrasion of right hand, initial encounter; W55.03XA Scratched by cat, initial encounter | CPT/HCPCS: 85007; 85027; 85651 ==

== ENCOUNTER 2022-05-12 13:12 | Oncology outpatient (recurring) (ONCR) | payer MEDICARE, MEDICAID, SELFPAY ==
[2022-05-12 13:26] VITALS: BP 120/75; PULSE 87; RESP 18; TEMP 36.9; O2SAT 97
[2022-05-12] MEDS: sodium chloride 0.9% 250 ML 75 ML IV (13:39)
[2022-05-12] MEDS: acetaminophen 325 mg Tablet 650 MG PO (13:40)
[2022-05-12] MEDS: diphenhydrAMINE 50 mg/mL SDV 1mL 25 MG IVP (13:42)
[2022-05-12] MEDS: TOCILIZUMAB IV (13:47)
[2022-05-12] MEDS: SODIUM CHLORIDE 0.9% IV (13:47)
[2022-05-12 14:50] VITALS: BP 136/79; PULSE 83; RESP 18; TEMP 36.9; O2SAT 94
== END 2022-06-08 23:59 | disposition home or self-care (01) ==
PROVIDERS: PCP Registered Nurse; Visit Provider Internal Medicine
DX: M05.9 Rheumatoid arthritis with rheumatoid factor, unspecified (principal); Z79.899 Other long term (current) drug therapy
CPT/HCPCS: 96365; 96375; J1200; J2920; J3262; J7050

== ENCOUNTER → 2022-06-18 14:48 | Outpatient (BNVA) | payer MEDICARE, MEDICAID, SELFPAY | PROVIDERS: PCP Registered Nurse; Visit Provider Internal Medicine | DX: M05.9 Rheumatoid arthritis with rheumatoid factor, unspecified (principal); Z79.899 Other long term (current) drug therapy; R21 Rash and other nonspecific skin eruption | CPT/HCPCS: 99213 ==

== ENCOUNTER 2022-07-08 14:00 | Oncology outpatient (recurring) (ONCR) | payer MEDICARE, MEDICAID, SELFPAY ==
[2022-06-09 13:33] VITALS: BP 114/74; PULSE 80; RESP 16; TEMP 36.2; O2SAT 99
[2022-06-09 13:34] LABS: Basophils # 0.1 10^3/uL (0.0-0.1); Basophils % 0.7 %; Eosinophils # 0.8 10^3/uL (0.0-0.8); Eosinophils % 7.2 %; Hematocrit 37.4 % (37.0-47.0); Hemoglobin 12.1 g/dL (11.5-15.3); Lymphocytes # 2.3 10^3/uL (0.8-4.8); Lymphocytes % 21.8 %; Mean Corpuscular HGB Conc 32.4 g/dL (30.0-36.0); Mean Corpuscular Hemoglobin 29.1 pg (28.0-34.0); Mean Corpuscular Volume 89.9 fl (81-99); Monocytes # 0.9 10^3/uL (0.2-0.9); Monocytes % 8.1 %; Neutrophils # 6.59 10^3/uL (1.8-7.7); Nucleated Red Blood Cells % 0 %; Platelet Count 385 10^3/cmm (130-400); Red Blood Count 4.16 10^6/uL (4.1-5.3); Red Cell Distribution Width 14.1 % (12.1-15.1); White Blood Count 10.6 10^3/uL (4.0-10.0)
[2022-06-09] MEDS: sodium chloride 0.9% 250 ML 75 ML IV (13:41)
[2022-06-09] MEDS: diphenhydrAMINE 25 mg Capsule PO (13:44)
[2022-06-09] MEDS: acetaminophen 325 mg Tablet 650 MG PO (13:45)
[2022-06-09] MEDS: tocilizumab 390 MG in sodium chloride 0.9% (100 ml) 100 ML 119.5 MG IV (13:56)
[2022-06-09 15:01] VITALS: BP 135/85; PULSE 77; RESP 16; TEMP 36.8; O2SAT 97
[2022-07-08 13:52] VITALS: BP 117/75; PULSE 81; RESP 16; TEMP 36.6; O2SAT 96
[2022-07-08] MEDS: sodium chloride 0.9% 250 ML 75 ML IV (14:16)
[2022-07-08] MEDS: acetaminophen 325 mg Tablet 650 MG PO (14:18)
[2022-07-08] MEDS: diphenhydrAMINE 25 mg Capsule PO (14:18)
[2022-07-08] MEDS: dexamethasone 10 mg/mL INJ 6 MG IV (14:19)
[2022-07-08] MEDS: tocilizumab 400 MG in sodium chloride 0.9% (100 ml) 100 ML 120 MG IV (14:40)
[2022-07-08 15:30] VITALS: BP 129/75; PULSE 74; RESP 16; TEMP 36.9; O2SAT 96
== END 2022-07-09 23:59 | disposition home or self-care (01) ==
PROVIDERS: PCP Registered Nurse; Visit Provider Internal Medicine
DX: M05.9 Rheumatoid arthritis with rheumatoid factor, unspecified (principal)
CPT/HCPCS: 85025; 95909; 95910; 96365; 96375; J1100; J2920; J3262; J7050

== ENCOUNTER 2022-08-05 14:11 | Oncology outpatient (recurring) (ONCR) | payer MEDICARE, MEDICAID, SELFPAY ==
[2022-08-05] MEDS: acetaminophen 325 mg Tablet 650 MG PO (15:05)
[2022-08-05] MEDS: diphenhydrAMINE 25 mg Capsule PO (15:05)
[2022-08-05] MEDS: dexamethasone 10 mg/mL INJ 6 MG IVP (15:15)
[2022-08-05] MEDS: sodium chloride 0.9% 250 ML 100 ML IV (15:15)
[2022-08-05] MEDS: tocilizumab 390 MG in sodium chloride 0.9% (100 ml) 100 ML 119.5 MG IV (15:30)
[2022-08-05 16:30] VITALS: BP 141/76; PULSE 64; RESP 16; TEMP 37.3; O2SAT 99
== END 2022-08-08 23:59 | disposition home or self-care (01) ==
PROVIDERS: PCP Registered Nurse; Visit Provider Internal Medicine
DX: M06.9 Rheumatoid arthritis, unspecified (principal)
CPT/HCPCS: 96365; 96375; J1100; J3262; J7050

== ENCOUNTER 2022-10-08 14:00 | Oncology outpatient (recurring) (ONCR) | payer MEDICARE, MEDICAID, SELFPAY ==
[2022-09-10 14:23] VITALS: BP 141/77; PULSE 74; RESP 16; TEMP 36.6; O2SAT 97
[2022-09-10] MEDS: acetaminophen 325 mg Tablet 650 MG PO (14:31)
[2022-09-10] MEDS: sodium chloride 0.9% 250 ML 75 ML IV (14:31)
[2022-09-10] MEDS: methylPREDNISolone sod succ 40 mg SDV IVP (14:31)
[2022-09-10] MEDS: diphenhydrAMINE 25 mg Capsule PO (14:31)
[2022-09-10 14:44] LABS: Basophils # 0.1 10^3/uL (0.0-0.1); Basophils % 0.7 %; Eosinophils # 0.1 10^3/uL (0.0-0.8); Eosinophils % 1.1 %; Hematocrit 33.8 % (37.0-47.0); Hemoglobin 11.4 g/dL (11.5-15.3); Lymphocytes # 1.3 10^3/uL (0.8-4.8); Lymphocytes % 18.8 %; Mean Corpuscular HGB Conc 33.7 g/dL (30.0-36.0); Mean Corpuscular Hemoglobin 30.2 pg (28.0-34.0); Mean Corpuscular Volume 89.4 fl (81-99); Mean Platelet Volume 10.1 fL (7.4-10.4); Monocytes # 0.4 10^3/uL (0.2-0.9); Monocytes % 5.4 %; Neutrophils # 5.17 10^3/uL (1.8-7.7); Neutrophils % 73.6 %; Nucleated Red Blood Cells % 0 %; Platelet Count 347 10^3/cmm (130-400); Red Blood Count 3.78 10^6/uL (4.1-5.3); Red Cell Distribution Width 12.8 % (12.1-15.1)
[2022-09-10] MEDS: tocilizumab 390 MG in sodium chloride 0.9% (100 ml) 100 ML 119.5 MG IV (14:53)
[2022-09-10 15:20] LABS: Alanine Aminotransferase 23 U/L (0-33); Albumin Level 4.5 g/dL (3.5-5.2); Alkaline Phosphatase 66 U/L (35-105); Anion Gap 13.2 (5-19); Aspartate Amino Transferase 21 U/L (0-32); Blood Urea Nitrogen 20 mg/dL (8-23); Carbon Dioxide 27 mmol/L (22-29); Chloride 103 mmol/L (98-107); Globulin 2.6 g/dL (1.3-4.6); Glomerular Filtration Rate 62.3 mL/min (90-130); Glucose 122 mg/dL (65-115); Osmolality Calculated 292 mOsm/kg (285-295); Potassium 4.2 mmol/L (3.5-5.1); Sodium 139 mmol/L (136-145); Total Bilirubin 0.3 mg/dL (0.15-1.2); Total Protein 7.1 g/dL (6.6-8.7)
[2022-10-08] MEDS: acetaminophen 325 mg Tablet 650 MG PO (14:09)
[2022-10-08 14:10] VITALS: BP 146/79; PULSE 62; RESP 16; TEMP 36.2; O2SAT 99
[2022-10-08] MEDS: diphenhydrAMINE 25 mg Capsule PO (14:10)
[2022-10-08] MEDS: sodium chloride 0.9% 250 ML 75 ML IV (14:14)
[2022-10-08] MEDS: methylPREDNISolone sod succ 40 mg SDV IVP (14:30)
[2022-10-08] MEDS: tocilizumab 400 MG in sodium chloride 0.9% (100 ml) 100 ML 120 MG IV (14:34)
[2022-10-08 15:38] VITALS: BP 137/76; PULSE 75; RESP 18; TEMP 36.6; O2SAT 98
== END 2022-10-09 23:59 | disposition home or self-care (01) ==
PROVIDERS: PCP Registered Nurse; Visit Provider Internal Medicine
DX: M06.9 Rheumatoid arthritis, unspecified (principal)
CPT/HCPCS: 80053; 85025; 86140; 96365; 96375; J2920; J3262; J7050

== ENCOUNTER → 2022-11-05 13:34 | Outpatient (BNVA) | payer MEDICARE, MEDICAID, SELFPAY | PROVIDERS: PCP Registered Nurse; Visit Provider Internal Medicine | DX: M05.9 Rheumatoid arthritis with rheumatoid factor, unspecified (principal); R21 Rash and other nonspecific skin eruption | CPT/HCPCS: 99214 ==

== ENCOUNTER 2022-12-08 13:30 | Oncology outpatient (recurring) (ONCR) | payer MEDICARE, MEDICAID, SELFPAY ==
[2022-11-10] MEDS: sodium chloride 0.9% 250 ML 75 ML IV (15:13)
[2022-11-10] MEDS: diphenhydrAMINE 50 mg/mL SDV 1mL 25 MG IVP (15:14)
[2022-11-10] MEDS: methylPREDNISolone sod succ 40 mg SDV IVP (15:14)
[2022-11-10] MEDS: tocilizumab 400 MG in sodium chloride 0.9% (100 ml) 100 ML 120 MG IV (15:34)
[2022-11-10 16:30] VITALS: BP 145/68; PULSE 71; RESP 16; TEMP 36.1; O2SAT 97
[2022-12-08 13:20] VITALS: BP 124/76; PULSE 77; RESP 16; TEMP 36.8; O2SAT 97; BMI 20.8
[2022-12-08] MEDS: methylPREDNISolone sod succ 40 mg SDV IVP (14:16)
[2022-12-08] MEDS: sodium chloride 0.9% 250 ML 75 ML IV (14:16)
[2022-12-08] MEDS: diphenhydrAMINE 50 mg/mL SDV 1mL 25 MG IVP (14:16)
[2022-12-08] MEDS: tocilizumab 400 MG in sodium chloride 0.9% (100 ml) 100 ML 120 MG IV (14:52)
[2022-12-08 16:02] VITALS: BP 143/84; PULSE 67; RESP 18; O2SAT 99
== END 2022-12-09 23:59 | disposition home or self-care (01) ==
PROVIDERS: PCP Registered Nurse; Visit Provider Internal Medicine
DX: M06.9 Rheumatoid arthritis, unspecified (principal)
CPT/HCPCS: 96375; 96413; J1200; J2920; J3262; J7050

== ENCOUNTER 2023-01-05 11:00 | Oncology outpatient (recurring) (ONCR) | payer MEDICARE, MEDICAID, SELFPAY ==
[2023-01-05] MEDS: methylPREDNISolone sod succ 40 mg/mL INJ IVP (12:03)
[2023-01-05] MEDS: sodium chloride 0.9% 250 ML 75 ML IV (12:03)
[2023-01-05 12:08] LABS: Basophils # 0.1 10^3/uL (0.0-0.1); Basophils % 0.5 %; Eosinophils # 0.8 10^3/uL (0.0-0.8); Eosinophils % 9.1 %; Hematocrit 35.8 % (36-47); Lymphocytes # 1.8 10^3/uL (0.8-4.8); Lymphocytes % 19.3 %; Mean Corpuscular HGB Conc 33.2 g/dL (30-55); Mean Corpuscular Hemoglobin 30.4 pg (27-33); Mean Corpuscular Volume 91.6 fl (85-98); Mean Platelet Volume 10.8 fL (7.4-10.4); Monocytes # 0.8 10^3/uL (0.2-0.9); Neutrophils # 5.66 10^3/uL (1.8-7.7); Nucleated Red Blood Cells % 0 %; Platelet Count 339 10^3/cmm (157-399); Red Blood Count 3.91 10^6/uL (3.85-5.65); Red Cell Distribution Width 12.8 % (12.1-15.1); White Blood Count 9.13 10^3/uL (3.29-11.43)
[2023-01-05] MEDS: tocilizumab 400 MG in sodium chloride 0.9% (100 ml) 100 ML 120 MG IV (12:27)
[2023-01-05 13:30] VITALS: BP 144/79; PULSE 70; RESP 16; TEMP 36.7; O2SAT 99
[2023-01-05 13:56] LABS: Alanine Aminotransferase 26 U/L (0-33); Albumin Level 3.9 g/dL (3.5-5.2); Alkaline Phosphatase 63 U/L (35-105); Anion Gap 13.4 (5-19); Aspartate Amino Transferase 22 U/L (0-32); Blood Urea Nitrogen 24 mg/dL (8-23); Calcium 8.4 mg/dL (8.5-10.5); Carbon Dioxide 26 mmol/L (22-29); Chloride 102 mmol/L (98-107); Globulin 2.1 g/dL (1.3-4.6); Glomerular Filtration Rate 62.3 mL/min (90-130); Glucose 98 mg/dL (65-115); Osmolality Calculated 290 mOsm/kg (285-295); Potassium 3.4 mmol/L (3.5-5.1); Sodium 138 mmol/L (136-145); Total Bilirubin 0.4 mg/dL (0.15-1.2)
== END 2023-01-08 23:59 | disposition home or self-care (01) ==
PROVIDERS: PCP Registered Nurse; Visit Provider Internal Medicine
DX: M06.9 Rheumatoid arthritis, unspecified (principal)
CPT/HCPCS: 80053; 85025; 86140; 96375; 96413; J2920; J3262; J7050

== ENCOUNTER 2023-02-03 12:42 | Oncology outpatient (recurring) (ONCR) | payer MEDICARE, MEDICAID, SELFPAY ==
[2023-02-03 13:15] VITALS: BP 162/96; RESP 18; TEMP 37.1; O2SAT 97; BMI 20.3
[2023-02-03] MEDS: sodium chloride 0.9% 250 ML 75 ML IV (13:41)
[2023-02-03] MEDS: methylPREDNISolone sod succ 40 mg/mL INJ IVP (13:43)
[2023-02-03] MEDS: tocilizumab 400 MG in sodium chloride 0.9% (100 ml) 100 ML 120 MG IV (14:07)
[2023-02-03 15:18] VITALS: BP 162/80; PULSE 73; RESP 16; TEMP 36.7; O2SAT 98
== END 2023-02-08 23:59 | disposition home or self-care (01) ==
LOC: ONCMED 12:42
PROVIDERS: PCP Registered Nurse; Visit Provider Internal Medicine
DX: M06.9 Rheumatoid arthritis, unspecified (principal)
CPT/HCPCS: 96365; 96375; J2920; J3262; J7050

== ENCOUNTER 2023-02-19 09:14 | Outpatient (CLI) | payer MEDICARE, MEDICAID, SELFPAY ==
--- NOTE | 2023-02-19 09:30 | MM_ITS ---
WS: [id number] SCREENING DIGITAL TOMOSYNTHESIS MAMMOGRAM WITH CAD HISTORY: Z12.31 - Encounter for screening mammogram for malignant ... COMPARISON: None available. Bilateral CC and MLO with tomosynthesis views submitted. Synthetic mammography reviewed. Computer aid ed detection analyzed. Breast composition: There are scattered areas of fibroglandular density. No suspicious masses, microc alcifications or architectural distortion. Numerous bilateral benign calcifications. IMPRESSION: MM/[place] [id number] BI-RADS: 2-Benign FOLLOW UP: 1 Year Follow-up
== END 2023-02-19 09:15 | disposition home or self-care (01) ==
LOC: MOBLMAM 09:24
PROVIDERS: PCP Registered Nurse; Visit Provider Registered Nurse
DX: Z12.31 Encounter for screening mammogram for malignant neoplasm of breast (principal)
CPT/HCPCS: 77063; 77067

== ENCOUNTER → 2023-02-26 10:55 | Outpatient (BNVA) | payer MEDICARE, MEDICAID, SELFPAY | PROVIDERS: PCP Registered Nurse; Visit Provider Internal Medicine | DX: R21 Rash and other nonspecific skin eruption (principal); M05.9 Rheumatoid arthritis with rheumatoid factor, unspecified | CPT/HCPCS: 99214 ==

== ENCOUNTER 2023-03-03 13:32 | Oncology outpatient (recurring) (ONCR) | payer MEDICARE, MEDICAID, SELFPAY ==
[2023-03-03] MEDS: sodium chloride 0.9% 250 ML 75 ML IV (14:36)
[2023-03-03] MEDS: methylPREDNISolone sod succ 40 mg/mL INJ IV (14:36)
[2023-03-03 14:45] VITALS: BP 144/79; PULSE 74; RESP 16; TEMP 36.6; O2SAT 99
[2023-03-03] MEDS: SODIUM CHLORIDE 0.9% IV (14:56)
[2023-03-03] MEDS: TOCILIZUMAB IV (14:56)
[2023-03-03 15:58] VITALS: BP 151/85; PULSE 76; TEMP 37; O2SAT 97
== END 2023-03-11 23:59 | disposition home or self-care (01) ==
PROVIDERS: PCP Registered Nurse; Visit Provider Internal Medicine
DX: M06.9 Rheumatoid arthritis, unspecified (principal)
CPT/HCPCS: 96375; 96413; J2920; J3262; J7050

== ENCOUNTER → 2023-03-27 09:48 | Outpatient (BNVA) | payer MEDICARE, MEDICAID, SELFPAY | PROVIDERS: PCP Nurse Practitioner Family; Visit Provider Nurse Practitioner Family | DX: I10 Essential (primary) hypertension (principal); Z79.899 Other long term (current) drug therapy | CPT/HCPCS: 80053; 81000; 84439; 84443; 85025 ==

== ENCOUNTER 2023-06-25 14:04 | Oncology outpatient (recurring) (ONCR) | payer MEDICARE, MEDICAID, SELFPAY ==
[2023-06-25 14:28] VITALS: BP 144/83; PULSE 76; RESP 18; TEMP 36.4; O2SAT 95
[2023-06-25 14:43] LABS: Basophils # 0.1 10^3/uL (0.0-0.1); Basophils % 0.9 %; Eosinophils # 0.7 10^3/uL (0.0-0.8); Eosinophils % 8.8 %; Hematocrit 37.8 % (36-47); Lymphocytes # 2.2 10^3/uL (0.8-4.8); Lymphocytes % 27.2 %; Mean Corpuscular HGB Conc 33.3 g/dL (30-55); Mean Corpuscular Hemoglobin 28.8 pg (27-33); Mean Corpuscular Volume 86.5 fl (85-98); Mean Platelet Volume 9.9 fL (7.4-10.4); Monocytes # 0.8 10^3/uL (0.2-0.9); Monocytes % 9.9 %; Neutrophils # 4.31 10^3/uL (1.8-7.7); Neutrophils % 52.8 %; Nucleated Red Blood Cells % 0 %; Platelet Count 463 10^3/cmm (157-399); Red Blood Count 4.37 10^6/uL (3.85-5.65); Red Cell Distribution Width 13.5 % (12.1-15.1); White Blood Count 8.16 10^3/uL (3.29-11.43)
[2023-06-25] MEDS: acetaminophen 325 mg Tablet 650 MG PO (14:50)
[2023-06-25] MEDS: sodium chloride 0.9% 250 ML 75 ML IV (14:50)
[2023-06-25] MEDS: methylPREDNISolone sod succ 40 mg/mL INJ IVP (14:51)
[2023-06-25] MEDS: tocilizumab 400 MG in sodium chloride 0.9% (100 ml) 100 ML 120 MG IV (14:58)
[2023-06-25 15:03] LABS: Alanine Aminotransferase 29 U/L (0-33); Albumin Level 4.2 g/dL (3.5-5.2); Alkaline Phosphatase 112 U/L (35-105); Aspartate Amino Transferase 31 U/L (0-32); Creatinine Clr Calc Pharmacy 44.7073; Globulin 3.6 g/dL (1.3-4.6); Glomerular Filtration Rate 55.1 mL/min (90-130); Total Bilirubin 0.2 mg/dL (0.15-1.2); Total Protein 7.8 g/dL (6.6-8.7)
[2023-06-25 15:26] LABS: Hepatitis B Core AB, Total Non-Reactive (Nonreactive); Hepatitis B Surface Antigen Non-Reactive (Nonreactive); Hepatitis C Virus Antibody Non-Reactive (Nonreactive)
[2023-06-25 16:26] VITALS: BP 155/81; PULSE 69; RESP 17; TEMP 36.3; O2SAT 98
[2023-06-29 10:59] LABS: Quantiferon Mitogen 8.45 IU/mL; Quantiferon Nil 0.06 IU/mL; Quantiferon Plus TB2 <0.00 IU/mL; Quantiferon TB Gold NEGATIVE (NEGATIVE)
== END 2023-07-10 23:59 | disposition home or self-care (01) ==
PROVIDERS: PCP Nurse Practitioner Family; Visit Provider Internal Medicine
DX: M05.9 Rheumatoid arthritis with rheumatoid factor, unspecified (principal); Z79.899 Other long term (current) drug therapy; Z11.59 Encounter for screening for other viral diseases
CPT/HCPCS: 80076; 82565; 85025; 86140; 86480; 86704; 86803; 87340; 96367; 96375; 96413; J2919; J3262; J7050

== ENCOUNTER → 2023-06-30 12:40 | Outpatient (BNVA) | payer MEDICARE, MEDICAID, SELFPAY | PROVIDERS: PCP Nurse Practitioner Family; Visit Provider Internal Medicine Rheumatology | DX: M05.9 Rheumatoid arthritis with rheumatoid factor, unspecified (principal); Z79.899 Other long term (current) drug therapy; Z71.85 Encounter for immunization safety counseling | CPT/HCPCS: 99214 ==

== ENCOUNTER 2023-07-23 14:23 | Oncology outpatient (recurring) (ONCR) | payer MEDICARE, MEDICAID, SELFPAY ==
[2023-07-23 14:33] VITALS: BP 137/80; PULSE 79; RESP 18; O2SAT 98
[2023-07-23] MEDS: acetaminophen 325 mg Tablet 650 MG PO (14:44)
[2023-07-23] MEDS: diphenhydrAMINE 25 mg Capsule PO (14:45)
[2023-07-23] MEDS: sodium chloride 0.9% 250 ML 75 ML IV (14:45)
[2023-07-23] MEDS: methylPREDNISolone sod succ 40 mg/mL INJ IVP (14:48)
[2023-07-23] MEDS: SODIUM CHLORIDE 0.9% IV (14:57)
[2023-07-23] MEDS: TOCILIZUMAB IV (14:57)
[2023-07-23 16:00] VITALS: BP 149/83; PULSE 73; O2SAT 94
== END 2023-08-09 23:59 | disposition home or self-care (01) ==
PROVIDERS: PCP Nurse Practitioner Family; Visit Provider Internal Medicine
DX: M06.9 Rheumatoid arthritis, unspecified
CPT/HCPCS: 96375; 96413; J2919; J3262; J7050

== ENCOUNTER 2023-08-20 14:56 | Oncology outpatient (recurring) (ONCR) | payer MEDICARE, MEDICAID, SELFPAY ==
[2023-08-20 15:17] VITALS: BP 179/82; PULSE 66; TEMP 36.7; O2SAT 97
[2023-08-20 15:29] LABS: Basophils # 0.1 10^3/uL (0.0-0.1); Basophils % 1.2 %; Eosinophils # 0.6 10^3/uL (0.0-0.8); Eosinophils % 10.5 %; Hematocrit 38.8 % (36-47); Lymphocytes # 1.7 10^3/uL (0.8-4.8); Lymphocytes % 28.7 %; Mean Corpuscular HGB Conc 33.2 g/dL (30-55); Mean Corpuscular Hemoglobin 29.3 pg (27-33); Mean Platelet Volume 10.7 fL (7.4-10.4); Monocytes # 0.8 10^3/uL (0.2-0.9); Monocytes % 13.2 %; Neutrophils # 2.74 10^3/uL (1.8-7.7); Neutrophils % 46.2 %; Nucleated Red Blood Cells % 0 %; Platelet Count 304 10^3/cmm (157-399); Red Blood Count 4.41 10^6/uL (3.85-5.65); Red Cell Distribution Width 14.6 % (12.1-15.1); White Blood Count 5.92 10^3/uL (3.29-11.43)
[2023-08-20] MEDS: methylPREDNISolone sod succ 40 mg/mL INJ IVP (15:30)
[2023-08-20] MEDS: sodium chloride 0.9% 250 ML 75 ML IV (15:30)
[2023-08-20] MEDS: acetaminophen 325 mg Tablet 650 MG PO (15:30)
[2023-08-20] MEDS: SODIUM CHLORIDE 0.9% IV (15:41)
[2023-08-20] MEDS: TOCILIZUMAB IV (15:41)
[2023-08-20 16:03] LABS: Alanine Aminotransferase 27 U/L (0-33); Albumin Level 4.5 g/dL (3.5-5.2); Alkaline Phosphatase 74 U/L (35-105); Aspartate Amino Transferase 22 U/L (0-32); Globulin 2.9 g/dL (1.3-4.6); Glomerular Filtration Rate 71.3 mL/min (90-130); Total Bilirubin 0.2 mg/dL (0.15-1.2); Total Protein 7.4 g/dL (6.6-8.7)
[2023-08-20 16:53] VITALS: BP 162/77; PULSE 69; RESP 16; TEMP 36.8; O2SAT 95
== END 2023-09-09 23:59 | disposition home or self-care (01) ==
PROVIDERS: Internal Medicine Rheumatology; PCP Nurse Practitioner Family; Visit Provider Internal Medicine
DX: M06.9 Rheumatoid arthritis, unspecified (principal); Z79.899 Other long term (current) drug therapy
CPT/HCPCS: 80076; 82565; 85025; 86140; 96365; 96375; J2919; J3262; J7050

== ENCOUNTER 2023-09-17 14:49 | Oncology outpatient (recurring) (ONCR) | payer MEDICARE, MEDICAID, SELFPAY ==
[2023-09-17] MEDS: sodium chloride 0.9% 250 ML 75 ML IV (16:11)
[2023-09-17] MEDS: methylPREDNISolone sod succ 40 mg/mL INJ 20 MG IVP (16:13)
[2023-09-17] MEDS: acetaminophen 325 mg Tablet 650 MG PO (16:17)
[2023-09-17] MEDS: SODIUM CHLORIDE 0.9% IV (16:24)
[2023-09-17] MEDS: TOCILIZUMAB IV (16:24)
[2023-09-17 17:34] VITALS: BP 141/83; PULSE 67; RESP 18; TEMP 37.1; O2SAT 98
== END 2023-10-10 23:59 | disposition home or self-care (01) ==
PROVIDERS: PCP Nurse Practitioner Family; Visit Provider Internal Medicine
DX: M06.9 Rheumatoid arthritis, unspecified (principal); Z79.899 Other long term (current) drug therapy; Z79.620 Long term (current) use of immunosuppressive biologic
CPT/HCPCS: 96365; 96375; J2919; J3262; J7050

== ENCOUNTER 2023-10-15 14:33 | Oncology outpatient (recurring) (ONCR) | payer MEDICARE, MEDICAID, SELFPAY ==
[2023-10-15 15:36] LABS: Basophils # 0.1 10^3/uL (0.0-0.1); Basophils % 1.2 %; Eosinophils # 0.8 10^3/uL (0.0-0.8); Eosinophils % 11.3 %; Hematocrit 36.3 % (36-47); Lymphocytes # 1.8 10^3/uL (0.8-4.8); Lymphocytes % 25.7 %; Mean Corpuscular HGB Conc 34.4 g/dL (30-55); Mean Corpuscular Hemoglobin 31.3 pg (27-33); Mean Corpuscular Volume 90.8 fl (85-98); Mean Platelet Volume 10.6 fL (7.4-10.4); Monocytes % 14.5 %; Neutrophils # 3.21 10^3/uL (1.8-7.7); Neutrophils % 47.2 %; Nucleated Red Blood Cells % 0 %; Platelet Count 308 10^3/cmm (157-399); Red Cell Distribution Width 13.2 % (12.1-15.1); White Blood Count 6.81 10^3/uL (3.29-11.43)
[2023-10-15] MEDS: methylPREDNISolone sod succ 40 mg/mL INJ 20 MG IVP (15:41)
[2023-10-15] MEDS: sodium chloride 0.9% 250 ML 75 ML IV (15:42)
[2023-10-15] MEDS: acetaminophen 500 mg Tablet PO (15:48)
[2023-10-15 15:50] LABS: Alanine Aminotransferase 27 U/L (0-33); Albumin Level 4.4 g/dL (3.5-5.2); Alkaline Phosphatase 72 U/L (35-105); Aspartate Amino Transferase 25 U/L (0-32); Globulin 2.6 g/dL (1.3-4.6); Glomerular Filtration Rate 71.1 mL/min (90-130); Total Bilirubin 0.3 mg/dL (0.15-1.2)
[2023-10-15] MEDS: tocilizumab 390 MG in sodium chloride 0.9% (100 ml) 100 ML 119.5 MG IV (16:07)
[2023-10-15 17:17] VITALS: BP 167/89; PULSE 78; RESP 16; TEMP 36.3; O2SAT 99
== END 2023-11-09 23:59 | disposition home or self-care (01) ==
PROVIDERS: Internal Medicine Rheumatology; PCP Nurse Practitioner Family; Visit Provider Internal Medicine
DX: Z79.899 Other long term (current) drug therapy; M05.9 Rheumatoid arthritis with rheumatoid factor, unspecified
CPT/HCPCS: 80076; 82565; 85025; 86140; 96365; 96375; J2919; J3262; J7050

== ENCOUNTER 2023-11-12 14:52 | Oncology outpatient (recurring) (ONCR) | payer MEDICARE, MEDICAID, SELFPAY ==
[2023-11-12 15:22] VITALS: BP 176/95; PULSE 80; RESP 16; TEMP 37.2; O2SAT 95
[2023-11-12] MEDS: acetaminophen 325 mg Tablet 650 MG PO (15:28)
[2023-11-12] MEDS: sodium chloride 0.9% 250 ML 75 ML IV (15:28)
[2023-11-12] MEDS: methylPREDNISolone sod succ 40 mg/mL INJ 20 MG IVP (15:29)
--- NOTE | 2023-11-12 15:30 | PC.NURSE ---
patient refused benadryl premedication.
[2023-11-12] MEDS: tocilizumab 390 MG in sodium chloride 0.9% (100 ml) 100 ML 119.5 MG IV (16:00)
[2023-11-12 17:00] VITALS: BP 156/79; PULSE 63; TEMP 36.9; O2SAT 99
== END 2023-12-10 23:59 | disposition home or self-care (01) ==
PROVIDERS: PCP Nurse Practitioner Family; Visit Provider Internal Medicine
DX: M06.9 Rheumatoid arthritis, unspecified (principal); Z79.899 Other long term (current) drug therapy
CPT/HCPCS: 96375; 96413; J2919; J3262; J7050

== ENCOUNTER 2023-12-14 13:43 | Oncology outpatient (recurring) (ONCR) | payer MEDICARE, MEDICAID, SELFPAY ==
[2023-12-14 13:50] VITALS: BP 150/83; PULSE 70; RESP 18; TEMP 36.4; O2SAT 99
[2023-12-14] MEDS: diphenhydrAMINE 50 mg/mL SDV 1mL 25 MG IVP (14:03)
[2023-12-14] MEDS: acetaminophen 325 mg Tablet 650 MG PO (14:03)
[2023-12-14] MEDS: methylPREDNISolone sod succ 40 mg/mL INJ IVP (14:05)
[2023-12-14 14:08] LABS: Basophils # 0.1 10^3/uL (0.0-0.1); Basophils % 0.9 %; Eosinophils # 0.4 10^3/uL (0.0-0.8); Eosinophils % 6.2 %; Hematocrit 36.8 % (36-47); Lymphocytes # 1.6 10^3/uL (0.8-4.8); Mean Corpuscular HGB Conc 33.2 g/dL (30-55); Mean Corpuscular Volume 90.6 fl (85-98); Mean Platelet Volume 10.6 fL (7.4-10.4); Monocytes # 0.8 10^3/uL (0.2-0.9); Monocytes % 10.9 %; Neutrophils # 4.08 10^3/uL (1.8-7.7); Neutrophils % 58.7 %; Nucleated Red Blood Cells % 0 %; Platelet Count 308 10^3/cmm (157-399); Red Blood Count 4.06 10^6/uL (3.85-5.65); Red Cell Distribution Width 12.4 % (12.1-15.1); White Blood Count 6.95 10^3/uL (3.29-11.43)
[2023-12-14 14:10] LABS: Erythrocyte Sedimentation Rate < 1 mm/hr (0-15)
[2023-12-14 14:25] LABS: Alanine Aminotransferase 21 U/L (0-33); Albumin Level 4.4 g/dL (3.5-5.2); Alkaline Phosphatase 59 U/L (35-105); Aspartate Amino Transferase 22 U/L (0-32); Globulin 1.7 g/dL (1.3-4.6); Glomerular Filtration Rate 71.1 mL/min (90-130); Total Bilirubin 0.4 mg/dL (0.15-1.2); Total Protein 6.1 g/dL (6.6-8.7)
[2023-12-14] MEDS: tocilizumab 390 MG in sodium chloride 0.9% (100 ml) 100 ML 119.5 MG IV (14:30)
[2023-12-14 15:37] VITALS: BP 145/85; PULSE 80; RESP 17; TEMP 36.3; O2SAT 98
== END 2024-01-09 23:59 | disposition home or self-care (01) ==
PROVIDERS: Internal Medicine Rheumatology; PCP Nurse Practitioner Family; Visit Provider Internal Medicine
DX: M06.9 Rheumatoid arthritis, unspecified (principal); Z79.899 Other long term (current) drug therapy
CPT/HCPCS: 80076; 82565; 85025; 85651; 86140; 96375; 96413; J1200; J2919; J3262

== ENCOUNTER 2024-01-18 13:51 | Oncology outpatient (recurring) (ONCR) | payer MEDICARE, MEDICAID, SELFPAY ==
[2024-01-18 14:48] VITALS: BP 115/66; PULSE 74; RESP 16; TEMP 36.7; O2SAT 92
[2024-01-18] MEDS: acetaminophen 325 mg Tablet 650 MG PO (15:10)
[2024-01-18] MEDS: sodium chloride 0.9% 250 ML 75 ML IV (15:10)
[2024-01-18] MEDS: diphenhydrAMINE 50 mg/mL SDV 1mL 25 MG IVP (15:11)
[2024-01-18] MEDS: methylPREDNISolone sod succ 40 mg/mL INJ IVP (15:15)
[2024-01-18] MEDS: tocilizumab 400 MG in sodium chloride 0.9% (100 ml) 100 ML 120 MG IV (15:39)
[2024-01-18 16:35] VITALS: BP 151/90; PULSE 65; RESP 16; TEMP 36.8; O2SAT 93
== END 2024-02-09 23:59 | disposition home or self-care (01) ==
PROVIDERS: PCP Nurse Practitioner Family; Visit Provider Internal Medicine
DX: M05.9 Rheumatoid arthritis with rheumatoid factor, unspecified (principal); Z79.899 Other long term (current) drug therapy
CPT/HCPCS: 96365; 96375; J1200; J2919; J3262; J7050

== ENCOUNTER 2024-02-22 13:26 | Oncology outpatient (recurring) (ONCR) | payer MEDICARE, MEDICAID, SELFPAY ==
[2024-02-22] MEDS: acetaminophen 325 mg Tablet 650 MG PO (14:27)
[2024-02-22] MEDS: methylPREDNISolone sod succ 40 mg/mL INJ IVP (14:29)
[2024-02-22 14:33] LABS: Basophils # 0.1 10^3/uL (0.0-0.1); Basophils % 1.3 %; Eosinophils # 0.7 10^3/uL (0.0-0.8); Eosinophils % 11.5 %; Lymphocytes # 1.6 10^3/uL (0.8-4.8); Lymphocytes % 26.6 %; Mean Corpuscular HGB Conc 33.3 g/dL (30-55); Mean Corpuscular Hemoglobin 30.8 pg (27-33); Mean Corpuscular Volume 92.5 fl (85-98); Mean Platelet Volume 10.7 fL (7.4-10.4); Monocytes # 0.8 10^3/uL (0.2-0.9); Monocytes % 13.1 %; Neutrophils % 47.2 %; Nucleated Red Blood Cells % 0 %; Platelet Count 300 10^3/cmm (157-399); Red Blood Count 3.89 10^6/uL (3.85-5.65); White Blood Count 6.16 10^3/uL (3.29-11.43)
[2024-02-22 14:47] LABS: Erythrocyte Sedimentation Rate 1 mm/hr (0-15)
[2024-02-22 14:49] LABS: Alanine Aminotransferase 20 U/L (0-33); Albumin Level 4.1 g/dL (3.5-5.2); Alkaline Phosphatase 66 U/L (35-105); Aspartate Amino Transferase 20 U/L (0-32); Creatinine Clr Calc Pharmacy 55.1079; Globulin 2.6 g/dL (1.3-4.6); Glomerular Filtration Rate 71.1 mL/min (90-130); Total Bilirubin 0.4 mg/dL (0.15-1.2); Total Protein 6.7 g/dL (6.6-8.7)
[2024-02-22 14:53] VITALS: BP 126/64; PULSE 66; RESP 16; TEMP 36.9; O2SAT 98
[2024-02-22] MEDS: tocilizumab 400 MG in sodium chloride 0.9% (100 ml) 100 ML 120 MG IV (15:20)
[2024-02-22 16:17] VITALS: BP 144/81; PULSE 72; TEMP 36.9; O2SAT 92
== END 2024-03-11 23:59 | disposition home or self-care (01) ==
PROVIDERS: Internal Medicine Rheumatology; PCP Nurse Practitioner Family; Visit Provider Internal Medicine
DX: M06.9 Rheumatoid arthritis, unspecified (principal); Z79.899 Other long term (current) drug therapy
CPT/HCPCS: 80076; 82565; 85025; 85651; 86140; 96365; 96375; J2919; J3262

== ENCOUNTER → 2024-03-02 14:38 | Outpatient (BNVA) | payer MEDICARE, MEDICAID, SELFPAY | PROVIDERS: PCP Nurse Practitioner Family; Visit Provider Internal Medicine Rheumatology | DX: M05.9 Rheumatoid arthritis with rheumatoid factor, unspecified (principal); Z79.899 Other long term (current) drug therapy; Z71.85 Encounter for immunization safety counseling | CPT/HCPCS: 99214 ==

== ENCOUNTER 2024-03-23 09:09 | Outpatient (CLI) | payer MEDICARE, MEDICAID, SELFPAY ==
--- NOTE | 2024-03-23 09:20 | MM_ITS ---
WS: [id number] BILATERAL 3D TOMOSYNTHESIS DIGITAL SCREENING MAMMOGRAPHY WITH CAD CLINICAL INFORMATION: SCREENING HISTORY: Screening mammogram. No current complaints. COMPARISON: 2023 TECHNIQUE: Bilateral CC and MLO views. FINDINGS: The breasts are composed of heterogeneous fibroglandular density tissue, which can limit the detection of small underlying mass lesions. No suspicious mass, asymmetry, calcifications, or architectural distortion. No evidence of malignancy. Punctate and lucent centered calcifications. MM/MM [facility] tomosynthesis [id number] IMPRESSION: DENSITY: The breasts are heterogeneously dense, which may obscure small masses. BI-RADS: 2 - Benign FOLLOW UP: 1 Year Follow-up Recommend return to annual screening mammography.
== END 2024-03-23 09:10 | disposition home or self-care (01) ==
LOC: MOBLMAM 09:12
PROVIDERS: PCP Nurse Practitioner Family; Visit Provider Nurse Practitioner Family
DX: Z12.31 Encounter for screening mammogram for malignant neoplasm of breast (principal); R92.333 Mammographic heterogeneous density, bilateral breasts; R92.1 Mammographic calcification found on diagnostic imaging of breast
CPT/HCPCS: 77063; 77067

== ENCOUNTER → 2024-05-02 13:57 | Outpatient (BNVA) | payer MEDICARE, MEDICAID, SELFPAY | PROVIDERS: PCP Nurse Practitioner Family; Visit Provider Internal Medicine | DX: R07.9 Chest pain, unspecified (principal) | CPT/HCPCS: 36415; 80048; 93005; 99214 ==

== ENCOUNTER 2024-05-17 07:07 | Outpatient (CLI) | payer MEDICARE, MEDICAID, SELFPAY ==
--- NOTE | 2024-05-17 07:12 | USCV_ITS ---
Lenora Brian Age: 68 Gender: F : 1955 Exam Date: 05/17/2024 07:17 Ordering Phys: Alcon Blackmon M.D ([email or web address]) Technologist: [place] Exam Location: [facility] – [place] Indication: HTN Aortic Velocity @ SMA (cm/s) 143 RIGHT KIDNEY LEFT KIDNEY Velocity (cm/s) Velocity (cm/s) Sys/Matson Sys/Matson Resistive Index Resistive Index 65.8 / 21.4 0.68 Proximal Renal Artery 168.1 / 33.6 0.80 55.3 / 10.0 0.82 Mid Renal Artery 0.0 / 24.5 0.80 41.1 / 14.7 0.64 Distal Renal Artery 59.1 / 22.7 0.62 58.6 / 20.5 0.65 Hilar 31.9 / 12.3 0.61 24.4 / 7.5 0.69 Upper Pole 37.3 / 15.3 0.59 25.8 / 6.7 74.60 Mid Pole 28.1 / 9.0 0.68 18.0 / 7.3 0.59 Lower Pole 34.5 / 11.2 0.68 0.46 Renal Aortic Ratio 1.17 Accleration Time (sec) 246.70 Hilar 107.20 60.70 Upper Pole 96.90 74.60 Mid Pole 70.10 41.00 Lower Pole 94.00 10.7 Kidney Length (cm) 9.1 CONCLUSIONS No sonographic evidence of hemodynamically significant renal artery stenosis bilaterally. Slightly elevated velocity Proximal Left renal artery but within normal limits No hydronephrosis Kyler Cardona MD (Electronically Signed) Final Date: 17 May 2024 08:50 S
== END 2024-05-17 07:08 | disposition home or self-care (01) ==
PROVIDERS: PCP Nurse Practitioner Family; Visit Provider Internal Medicine
DX: I10 Essential (primary) hypertension (principal)
CPT/HCPCS: 93975

== ENCOUNTER → 2024-06-08 13:49 | Outpatient (BNVA) | payer MEDICARE, MEDICAID, SELFPAY | PROVIDERS: PCP Nurse Practitioner Family; Visit Provider Internal Medicine Rheumatology | DX: M05.9 Rheumatoid arthritis with rheumatoid factor, unspecified (principal); Z79.899 Other long term (current) drug therapy; Z71.85 Encounter for immunization safety counseling | CPT/HCPCS: 36415; 80076; 82306; 85025; 99214 ==

== ENCOUNTER 2024-08-05 08:15 | Oncology outpatient (recurring) (ONCR) | payer MEDICARE, MEDICAID, SELFPAY ==
--- NOTE | 2024-08-05 08:30 | USCV_ITS ---
Lenora Brian Age: 68 Gender: F : 1955 Exam Date: 08/05/2024 08:32 Ordering Phys: Alcon Blackmon M.D ([email or web address]) Technologist: [place]ODROW Exam Location: [facility] – [place] Indication: Cp, SoB BP: 160 / 88 HR: 57 Rhythm: Sinus Technical Quality: Adequate MEASUREMENTS (Male / Female) Normal Values 2D ECHO LV Diastolic Diameter PLAX 4.4 cm 4.2 - 5.9 / 3.9 - 5.3 cm IVS Diastolic Thickness 0.9 cm 0.6 - 1.0 / 0.6 - 0.9 cm IVS Systolic Thickness 1.7 cm LVPW Diastolic Thickness 0.7 cm 0.6 - 1.0 / 0.6 - 0.9 cm LVPW Systolic Thickness 1.1 cm LVOT Diameter 2.1 cm LV Ejection Fraction 2D Teich 66.4 % LV Ejection Fraction MOD 4C 70.3 % LV Ejection Fraction MOD 2C 72.4 % LV Ejection Fraction 2C AL 73.1 % LA Diameter 2.9 cm RA Systolic Volume 4C AL 30.5 ml RA Systolic Volume 4C MOD 29.4 ml LA Sys Volume AL 42.8 cm cubed LA Sys Volume Index AL 28.2 cm cubed/m squared IVC Diameter 1.2 cm M-MODE LA Ao Ratio MM 1.2 AV Cusp Separation MM 1.4 cm DOPPLER AV Peak Velocity 132.0 cm/s LVOT Peak Velocity 105.0 cm/s AV Area Cont Eq vti 3.0 cm squared AV Area Cont Eq pk 2.7 cm squared MV Peak Velocity 120.0 cm/s MV Area PHT 3.0 cm squared Mitral E to A Ratio 0.9 TR Peak Velocity 140.0 cm/s TR Peak Gradient 7.8 mmHg TV Peak E Velocity 59.0 cm/s PV Peak Velocity 85.0 cm/s FINDINGS Left Ventricle Left ventricle is normal in size. LV systolic function is normal with EF of 60-65%. No regional wall motion abnormalities are seen. Grade 1 diastolic dysfunction Right Ventricle Normal in size and function Right Atrium Normal in size Left Atrium Normal in size Mitral Valve Structurally normal valve. Mild mitral regurgitation Aortic Valve Aorta is thickened. No significant stenosis or regurgitation Tricuspid Valve Insufficient TR jet to calculate RVSP. Pulmonic Valve Mild pulmonic regurgitation Pericardium Small pericardial effusion Aorta Normal in size IVC Appears to be normal CONCLUSIONS LV systolic function is normal with EF of 60-65%. Grade 1 diastolic dysfunction. Mild mitral regurgitation. Small pericardial effusion Mild pulmonic regurgitation Alcon Blackmon MD (Electronically Signed) Final Date: 19 August 2024 12:59 S
== END 2024-08-08 23:59 | disposition home or self-care (01) ==
LOC: RAD 08:15
PROVIDERS: PCP Nurse Practitioner Family; Visit Provider Internal Medicine
DX: R07.9 Chest pain, unspecified (principal); R06.02 Shortness of breath; R93.1 Abnormal findings on diagnostic imaging of heart and coronary circulation; I34.0 Nonrheumatic mitral (valve) insufficiency; I35.8 Other nonrheumatic aortic valve disorders; I31.39 Other pericardial effusion (noninflammatory); I37.1 Nonrheumatic pulmonary valve insufficiency
CPT/HCPCS: 93306

== ENCOUNTER → 2024-08-09 09:30 | Outpatient (BNVA) | payer MEDICARE, MEDICAID, SELFPAY | PROVIDERS: PCP Nurse Practitioner Family; Visit Provider Nurse Practitioner Family | DX: I1A.0 Resistant hypertension (principal); M79.89 Other specified soft tissue disorders; Z87.891 Personal history of nicotine dependence | CPT/HCPCS: 99214 ==

== ENCOUNTER → 2024-10-24 13:13 | Outpatient (BNVA) | payer MEDICARE, MEDICAID, SELFPAY | PROVIDERS: PCP Nurse Practitioner Family; Visit Provider Internal Medicine Rheumatology | DX: M05.9 Rheumatoid arthritis with rheumatoid factor, unspecified (principal); Z79.899 Other long term (current) drug therapy; Z71.85 Encounter for immunization safety counseling | CPT/HCPCS: 36415; 80076; 82565; 85025; 85651; 86140; 99214 ==

== ENCOUNTER → 2025-02-07 13:36 | Outpatient (BNVA) | payer MEDICARE, MEDICAID, SELFPAY | PROVIDERS: PCP Nurse Practitioner Family; Visit Provider Internal Medicine | DX: I1A.0 Resistant hypertension (principal) | CPT/HCPCS: 99213 ==